=== PATIENT | female | born 1935 | race African-American/Black ===

== ENCOUNTER 2019-01-11 03:39 | Inpatient (IN) | payer MEDICARE ==
[2019-01-11] MEDS ORDERED: TYLENOL PO ONE (04:18)
[2019-01-11] MEDS ORDERED: NACL 0.9% 1000 ML 1,000 ML ONE (04:26)
[2019-01-11] MEDS ORDERED: XYLOCAINE 1% MPF 5 mL INFILTRATI ONE (05:00)
[2019-01-11] MEDS ORDERED: ROCEPHIN/NS 1 GM/50 ML 1 GM/50 ML BAG IV ONE (05:00)
[2019-01-11 05:15] LABS: Bacteria,Urine 4+ /HPF (Negative); Bilirubin,Urine NEG (Negative); Blood,Urine MOD (Negative); Color,Urine Yellow (Yellow); Hyaline Casts,Urine 3 /LPF; Mucus,Urine FEW /HPF; Urobilinogen,Urine < 2.0 mg/dL (<2.0)
[2019-01-11 05:22] LABS: Basophils % (Auto) 0.2 % (0.0-1.8); Eosinophils % (Auto) 0.2 % (0.0-4.3); Hematocrit 33.1 % (30.3-42.9); Hemoglobin 10.9 gm/dl (10.1-14.3); Lymphocytes # (Auto) 0.8 K/mm3 (1.2-5.4); Lymphocytes % (Auto) 4.5 % (13.4-35.0); Mean Corpuscular HGB Conc 33 % (30-34); Mean Corpuscular Volume 85 fl (79-97); Monocytes # (Auto) 1.2 K/mm3 (0.0-0.8); Monocytes % (Auto) 7.1 % (0.0-7.3); Platelet Count 310 K/mm3 (140-440); Red Cell Distribution Width 16.2 % (13.2-15.2)
--- NOTE | 2019-01-11 05:36 | Emergency Department Report ---
ED General Adult HPI - General Chief complaint: Fever Stated complaint: FEVER Time Seen by Provider: 01/11/19 04:52 Source: patient, family, EMS, fruit sprayer Mode of arrival: Stretcher Limitations: Language Barrier - History of Present Illness Initial comments: 83-year-old female with no past medical history presents with complaint of fever and chills since yesterday. History obtained via [employer] fruit sprayer. Patient has no abdominal pain. Patient per her has been unable to walk for one year. states the patient has had back pain for 19 years but this pain was somewhat worse today. Patient denies any numbness or tingling at the current time. Patient has no urinary incontinence. Patient and states that patient uses the assistance of her or another caregiver to help her to ambulate. Patient denies any recent trauma to her back. Patient complains of dysuria. Patient complains of an occasional cough. Patient denies any nausea vomiting. Severity scale (0 -10): 5 - Related Data Allergies Allergy/AdvReac Type Severity Reaction Status Date / Time No Known Allergies Allergy Verified 01/11/19 04:28 ED Review of Systems ROS: Stated complaint: FEVER Other details as noted in HPI Constitutional: fever Eyes: denies: eye pain, eye discharge, vision change ENT: denies: ear pain, throat pain Respiratory: denies: cough, shortness of breath, wheezing Cardiovascular: denies: chest pain, palpitations Endocrine: no symptoms reported Gastrointestinal: denies: abdominal pain, nausea, diarrhea Genitourinary: denies: urgency, dysuria, discharge Musculoskeletal: denies: back pain, joint swelling, arthralgia Skin: denies: rash, lesions Neurological: weakness Psychiatric: denies: anxiety, depression Hematological/Lymphatic: denies: easy bleeding, easy bruising ED Past Medical Hx - Past Medical History Previous Medical History?: Yes Hx Hypertension: Yes Hx CVA: No Hx Congestive Heart Failure: No Hx Diabetes: No Hx Deep Vein Thrombosis: No Hx Pulmonary Embolism: No Hx GERD: No Hx Liver Disease: Yes Hx Renal Disease: Yes Hx of Cancer: No Hx Sickle Cell Disease: No Hx Arthritis: No Hx Headaches / Migraines: No Hx Seizures: No Hx Kidney Stones: Yes (1999) Hx Psychiatric Treatment: No Hx Asthma: No Hx COPD: No Hx Tuberculosis: No Hx Dementia: No Hx HIV: No - Surgical History Past Surgical History?: No - Social History Smoking Status: Never Smoker Substance Use Type: None ED Physical Exam - General Limitations: Language Barrier General appearance: alert, other (minimal distress; dehydrated) - Head Head exam: Present: atraumatic, normocephalic - Eye Eye exam: Present: normal appearance - ENT ENT exam: Present: mucous membranes dry - Neck Neck exam: Present: normal inspection - Respiratory Respiratory exam: Present: normal lung sounds bilaterally. Absent: respiratory distress - Cardiovascular Cardiovascular Exam: Present: regular rate, normal rhythm. Absent: systolic murmur, diastolic murmur, rubs, gallop - GI/Abdominal GI/Abdominal exam: Present: soft, normal bowel sounds - Extremities Exam Extremities exam: Present: normal inspection - Back Exam Back exam: Present: normal inspection, tenderness (mild tenderness lateral to l4 region in bilateral flank region with no evidence of erythema or ecchymosis) - Neurological Exam Neurological exam: Present: alert, oriented X3, CN II-XII intact - Expanded Neurological Exam Expanded Motor strength exam: RUE: 5, LUE: 5, RLE: 5, LLE: 5 Best Eye Response ([place]): (4) open spontaneously Best Motor Response (Og): (6) obeys commands Best Verbal Response (Og): (5) oriented [place] Total: 15 - Psychiatric Psychiatric exam: Present: normal affect, normal mood - Skin Skin exam: Present: warm, dry, intact, normal color. Absent: rash ED Course Vital Signs 01/11/19 04:11 Temperature 102.2 F H Pulse Rate 95 H Respiratory 26 H Rate Blood Pressure 146/66 O2 Sat by Pulse 95 Oximetry ED Medical Decision Making - Medical Decision Making Patient noted to have fever and elevated white count and was given ceftriaxone therapy while here in emergency department as she had a source of infection with that being her urine. Patient also had a chest x-ray read by the radiologist as showing the possibility of subtle infiltrates. Patient currently is afebrile. Case was discussed with the hospitalist service and as documentation states that patient's 's states the patient is unable to walk there was a discussion of the patient will need a CT of the lumbar spine. Patient at this current time shows no evidence of any neurosurgical emergency. Patient has mobility of her upper as well as lower extremities and denies any saddle anesthesia or urinary incontinence. Patient also has no paresthesias at this current time. Upon history with he s charlotte that she has been to multiple physicians including neurologists and neurosurgeons regarding this and the only diagnoses they have his weakness per him. - Differential Diagnosis UTI; Dehydration; Electrolyte Abnormality Critical care attestation.: If time is entered above; I have spent that time in minutes in the direct care of this critically ill patient, excluding procedure time. ED Disposition Clinical Impression: Urinary tract infection, Pneumonia Disposition: 09 OP ADMIT IP TO THIS HOSP Is pt being admited?: Yes Condition: Stable Instructions: Bacterial Pneumonia (ED) Referrals: PRIMARY CARE, [Primary Care Provider] - 3-5 Days Time of Disposition: 06:07
[2019-01-11 05:38] LABS: Alanine Aminotransferase 17 units/L (7-56); Albumin 2.9 g/dL (3.9-5); BUN/Creatinine Ratio 33; Blood Urea Nitrogen 13 mg/dL (7-17); Calcium 8.2 mg/dL (8.4-10.2); Hemolysis Index 2
[2019-01-11] MEDS ORDERED: NACL 0.9% 1000 ML 1,000 ML IV ONE (05:40)
--- NOTE | 2019-01-11 05:54 | XRay Report ---
PROCEDURE: XR CHEST 1V AP TECHNIQUE: Chest radiograph single view. HISTORY: fever COMPARISONS: None . FINDINGS: Heart: Heart is borderline enlarged. Mediastinum/Vessels: There is calcified plaque in the thoracic aorta. There is no aneurysm.. Lungs/Pleural space: There are opacities in the right lung which could be infiltrates. Left lung deandre ears clear and expanded. There are no effusions or pneumothoraces.. Bony thorax: No acute osseous abnormality. Life support devices: None. IMPRESSION: Heart is borderline enlarged. There are opacities in the right lung which could be infiltrates. This document is electronically signed by Zack Chance MD., Jan 11 2019 05:52:30 AM ET
--- NOTE | 2019-01-11 07:33 | Cat Scan Report ---
CT LUMBAR SPINE WITHOUT CONTRAST History: Back pain. Technique: Helical CT with sagittal and coronal reformatted images. Findings: Moderate to severe osteopenia. No evidence for compression deformity, displaced fracture, subluxation or bone lesion. Moderate to severe degenerative disc disease with vacuum phenomenon is identified at L4-5. The remaining disc levels are unremarkable. There is minimal diffuse facet arthropathy. Partial sacralization of L5 is noted bilaterally. Mild right hydronephrosis is suspected. The distal ureters and bladder are not included in this examination. I suspect a distal right ureteral stone could be present. There are 3 stones in the visualized left kidney measuring 4 mm and 5 mm at the superior pole and 8 mm at the inferior pole. No left hydronephrosis is suspected. IMPRESSION: Osteopenia. Degenerative changes. No acute injury is identified in the lumbar spine. Nephrolithiasis. Mild right hydronephrosis is suspected but partially imaged. Correlate for distal right ureteral stone.
[2019-01-11] MEDS ORDERED: NACL 0.9% 1000 ML IV ONE (09:22)
--- NOTE | 2019-01-11 09:32 | History and Physical Report ---
History of Present Illness Date of examination: 01/11/19 Date of admission: 01/11/19 07:43 Chief complaint: Worsening back pain with associated chills History of present illness: Patient's an 83-year-old female with past medical history of hypertension, subsequently the disease, also recurrent kidney stones last time was in 1999, chronic back pain and non-ambulatory for about a year. She presents to the ED accompanied by her with complaints of worsening back pain. She relates that 10 over 10 intensity located more to the left flank area at this time. The patient reports that she has chronic pain for 19 years but this is the worst she says that since yesterday. She also complained of chills but no associated nausea vomiting and no recent trauma to her back. She denies any numbness or tingling at this time. She does complain of dysuria with occasional cough but no shortness of breath documented. Information was obtained from ED documentation, cloth printer helper, and also grandson who is at bedside. Past History Past Medical History: hypertension, other (NEPHROLITHASIS) Past Surgical History: Other Social history: no significant social history, , lives with family. denies: smoking Family history: no significant family history Medications and Allergies Allergies Allergy/AdvReac Type Severity Reaction Status Date / Time No Known Allergies Allergy Verified 01/11/19 04:28 Home Medications Medication Instructions Recorded Confirmed Last Taken Type Unobtainable 01/11/19 01/11/19 Unknown History Active Meds: Active Medications Heparin Sodium (Porcine) (Heparin) 5,000 unit SUB-Q Q8HR ROSE Potassium Chloride (Kcl 10meq/100ml) 10 meq in 100 mls @ 100 mls/hr IV Q1H ROSE Stop: 01/11/19 13:29 Magnesium Sulfate 1 gm/ Sodium (Chloride) 52 mls @ 52 mls/hr IV ONCE ONE Stop: 01/11/19 10:59 Ceftriaxone Sodium (Rocephin/Ns 2 Gm/100 Ml) 2 gm in 100 mls @ 200 mls/hr IV Q24HR ROSE; Protocol Azithromycin 500 mg/ Sodium (Chloride) 250 mls @ 250 mls/hr IV Q24HR ROSE; Protocol Sodium Chloride (Nacl 0.9% 1000 Ml) 1,260 ml 30 ml/kg (1260 ml) IV ONCE ONE Stop: 01/11/19 09:23 Tamsulosin HCl (Flomax) 0.4 mg PO QDAY ROSE Review of Systems All systems: negative Constitutional: fever, chills, anorexia, malaise, lethargy, no fatigue, no weakn ess, no chronic headaches, no poor appetite Cardiovascular: no chest pain, no orthopnea, no palpitations, no rapid/irregular heart beat, no edema, no syncope, no lightheadedness, no shortness of breath Respiratory: cough, no cough with sputum, no excessive sputum, no hemoptysis, no shortness of breath, no dyspnea on exertion Gastrointestinal: abdominal pain (LEFT FLANK) Musculoskeletal: low back pain (CHRONIC) Integumentary: no pruritis, no redness, no jaundice, no darkening of skin, no acne Neurological: paralysis (UNABLE TO AMBULATE FOR A YEAR ?ETIOLOGY-FAMILY NOT SURE), no weakness, no tingling, no syncope, no migraines, no aphasia, no change in speech, no memory loss, no sensory deficit, no double vision Psychiatric: no change in sleep habits, no insomnia, no change in appetite, no hallucinations, no anhedonia, no confusion, no sadness/tearfullness Endocrine: no polyphagia, no excessive thirst, no proptosis, no palpatations Hematologic/Lymphatic: no easy bleeding Allergic/Immunologic: no urticaria Exam - Physical Exam Narrative exam: VITAL SIGNS: Reviewed. GENERAL: The patient appeared Mild distress. cachectic, Vital signs as documented. HEAD: No signs of head trauma. EYES: Pupils are equal. Extraocular motions intact. EARS: Hearing grossly intact. MOUTH: Oropharynx is normal. NECK: No adenopathy, no JVD. Mildly tender on the right side. CHEST: Chest with clear breath sounds bilaterally. No wheezes, rales, or rhonchi. CARDIAC: Regular rate and rhythm. S1 and S2, without murmurs, gallops, or rubs. VASCULAR: No Edema. Peripheral pulses normal and equal in all extremities. ABDOMEN: Soft, non tender and non distended. No rebound or guarding, and no masses palpated. Bowel Sounds normal. MUSCULOSKELETAL: flank tender Good range of motion of all major joints. Extremities without clubbing, cyanosis or edema. NEUROLOGIC EXAM: Alert and oriented x 3 No focal sensory or strength deficits. Speech normal. Follows commands. PSYCHIATRIC: Mood normal. SKIN: No rash or lesions. normal capillary refill - Constitutional Vitals: Temp Pulse Resp BP Pulse Ox 99.7 F H 86 24 150/70 92 01/11/19 05:55 01/11/19 05:52 01/11/19 06:00 01/11/19 05:52 01/11/19 05:52 Results - Labs CBC & Chem 7: 01/11/19 04:56 01/11/19 04:56 Labs: Laboratory Last Values WBC 17.6 K/mm3 (4.5-11.0) H 01/11/19 04:56 RBC 3.90 M/mm3 (3.65-5.03) 01/11/19 04:56 Hgb 10.9 gm/dl (10.1-14.3) 01/11/19 04:56 Hct 33.1 % (30.3-42.9) 01/11/19 04:56 MCV 85 fl (79-97) 01/11/19 04:56 MCH 28 pg (28-32) 01/11/19 04:56 MCHC 33 % (30-34) 01/11/19 04:56 RDW 16.2 % (13.2-15.2) H 01/11/19 04:56 Plt Count 310 K/mm3 (140-440) 01/11/19 04:56 Lymph % (Auto) 4.5 % (13.4-35.0) L 01/11/19 04:56 Isabella % (Auto) 7.1 % (0.0-7.3) 01/11/19 04:56 Eos % (Auto) 0.2 % (0.0-4.3) 01/11/19 04:56 Baso % (Auto) 0.2 % (0.0-1.8) 01/11/19 04:56 Lymph # 0.8 K/mm3 (1.2-5.4) L 01/11/19 04:56 Isabella # 1.2 K/mm3 (0.0-0.8) H 01/11/19 04:56 Eos # 0.0 K/mm3 (0.0-0.4) 01/11/19 04:56 Baso # 0.0 K/mm3 (0.0-0.1) 01/11/19 04:56 Seg Neutrophils % 88.0 % (40.0-70.0) H 01/11/19 04:56 Seg Neutrophils # 15.5 K/mm3 (1.8-7.7) H 01/11/19 04:56 Sodium 134 mmol/L (137-145) L 01/11/19 04:56 Potassium 3.3 mmol/L (3.6-5.0) L 01/11/19 04:56 Chloride 97.6 mmol/L (98-107) L 01/11/19 04:56 Carbon Dioxide 24 mmol/L (22-30) 01/11/19 04:56 16 mmol/L 01/11/19 04:56 BUN 13 mg/dL (7-17) 01/11/19 04:56 0.4 mg/dL (0.7-1.2) L 01/11/19 04:56 Estimated GFR > 60 ml/min 01/11/19 04:56 33 % 01/11/19 04:56 Glucose 105 mg/dL (65-100) H 01/11/19 04:56 Lactic Acid 2.00 mmol/L (0.7-2.0) 01/11/19 04:56 Calcium 8.2 mg/dL (8.4-10.2) L 01/11/19 04:56 0.60 mg/dL (0.1-1.2) 01/11/19 04:56 AST 19 units/L (5-40) 01/11/19 04:56 ALT 17 units/L (7-56) 01/11/19 04:56 63 units/L (35-129) 01/11/19 04:56 25 units/L (30-135) L 01/11/19 04:56 6.8 g/dL (6.3-8.2) 01/11/19 04:56 2.9 g/dL (3.9-5) L 01/11/19 04:56 0.7 % 01/11/19 04:56 Yellow (Yellow) 01/11/19 04:00 Slightly-cloudy (Clear) 01/11/19 04:00 6.0 (5.0-7.0) 01/11/19 04:00 Ur Specific [place] 1.012 (1.003-1.030) 01/11/19 04:00 100 mg/dl mg/dL (Negative) 01/11/19 04:00 150 mg/dL (Negative) 01/11/19 04:00 Neg mg/dL (Negative) 01/11/19 04:00 Mod (Negative) 01/11/19 04:00 Pos (Negative) 01/11/19 04:00 Neg (Negative) 01/11/19 04:00 < 2.0 mg/dL (<2.0) 01/11/19 04:00 Ur Leukocyte Esterase Mod (Negative) 01/11/19 04:00 63.0 /HPF (0.0-6.0) H 01/11/19 04:00 41.0 /HPF (0.0-6.0) 01/11/19 04:00 U Epithel Cells (Auto) 3.0 /HPF (0-13.0) 01/11/19 04:00 4+ /HPF (Negative) 01/11/19 04:00 Hyaline Casts 3 /LPF 01/11/19 04:00 Few /HPF 01/11/19 04:00 Blood Type A POSITIVE 01/11/19 04:56 Antibody Screen Negative 01/11/19 04:56 - Imaging and Cardiology CT scan - abdomen: image reviewed Assessment and Plan Assessment and plan: Patient's an 83-year-old female with past medical history of hypertension, subsequently the disease, also recurrent kidney stones last time was in 1999, chronic back pain and non-ambulatory for about a year. She presents to the ED accompanied by her with complaints of worsening back pain. She relates that 10 over 10 intensity located more to the left flank area at this time. The patient reports that she has chronic pain for 19 years but this is the worst she says that since yesterday. She also complained of chills but no associated nausea vomiting and no recent trauma to her back. She denies any numbness or tingling at this time. She does complain of dysuria with occasional cough but no shortness of breath documented. Information was obtained from ED document ation, cloth printer helper, and also grandson who is at bedside. CTAP: IMPRESSION: Osteopenia. Degenerative changes. No acute injury is identified in the lumbar spine. Nephrolithiasis. Mild right hydronephrosis is suspected but partially imaged. Correlate for distal right ureteral stone. CXR: IMPRESSION: Heart is borderline enlarged. There are opacities in the right lung which could be infiltrates. Assessment Sepsis secondary to pyelonephritis Acute pyelonephritis secondary to nephrolithiasis Nephrolithiasis with mild right hydronephrosis Right lung infiltrate possible pneumonia Severe protein calorie malnutrition Hypokalemia Hyponatremia Hypocalcemia Dehydration Hypertension chronic low back pain Plan Admit patient to [facility] Initiate sepsis protocol Repeat xray in 1-2 days to further evaluate Also initiate IV fluids for supportive care suspicion appeared dehydrated Continue antibiotics with ceftriaxone and azithromycin to cover pulmonary and renal Urology consult Start patient on Flomax Strain urine Customer Experience Strategist consult Medication request that in order to obtain complete a full med reconciliation Replace Electrolytes as needed DVT and GI prophylaxis plan discussed with patient and family. Advance Directives: Yes Plan of care discussed with patient/family: Yes
[2019-01-11] MEDS ORDERED: MAGNESIUM SULFATE 1 GM in NACL 0.9% 50 ML IV ONE (10:00)
[2019-01-11] MEDS ORDERED: ZITHROMAX 500 MG in NACL 0.9% 250ML 250 ML IV SCH (10:00)
--- NOTE | 2019-01-11 11:37 | Consultation ---
History of Present Illness - Reason for Consult Consult date: 01/11/19 - History of Present Illness 83-year-old female with no past medical history presents with complaint of fever and chills since yesterday. History obtained via grandson (Mr. Hewitt) Patient has no abdominal pain. Patient per her has been unable to walk for one year. states the patient has had back pain for 19 years but this pain was somewhat worse today. Patient denies any numbness or tingling at the cu rrent time. Patient has no urinary incontinence. Patient and states that patient uses the assistance of her or another caregiver to help her to ambulate. Patient denies any recent trauma to her back. Patient complains of dysuria. Patient complains of an occasional cough. Patient denies any nausea vomiting. Severity scale (0 -10): 5 CTAP: IMPRESSION: Osteopenia. Degenerative changes. No acute injury is identified in the lumbar spine. Nephrolithiasis. Mild right hydronephrosis is suspected but partially imaged. Correlate for distal right ureteral stone. abd - soft A/P rt hydro, left renal stone needs cysto----possible bilat stents (will need eswl as an outpt--clear UTI first) Past History Past Medical History: hypertension, other (NEPHROLITHASIS) Past Surgical History: Other Social history: no significant social history, , lives with family. denies: smoking Family history: no significant family history Medications and Allergies Allergies Allergy/AdvReac Type Severity Reaction Status Date / Time No Known Allergies Allergy Verified 01/11/19 04:28 Home Medications Medication Instructions Recorded Confirmed Last Taken Type Unobtainable 01/11/19 01/11/19 Unknown History Active Meds: Active Medications Heparin Sodium (Porcine) (Heparin) 5,000 unit SUB-Q Q8HR ROSE Potassium Chloride (Kcl 10meq/100ml) 10 meq in 100 mls @ 100 mls/hr IV Q1H ROSE Stop: 01/11/19 13:29 Ceftriaxone Sodium (Rocephin/Ns 2 Gm/100 Ml) 2 gm in 100 mls @ 200 mls/hr IV Q24HR ROSE; Protocol Azithromycin 500 mg/ Sodium (Chloride) 250 mls @ 250 mls/hr IV Q24HR ROSE; Protocol Sodium Chloride (Nacl 0.9% 1000 Ml) 1,000 mls @ 125 mls/hr IV DIRECT ROSE Tamsulosin HCl (Flomax) 0.4 mg PO QDAY ROSE Exam - Constitutional Vitals: Temp Pulse Resp BP Pulse Ox 98.6 F 82 14 139/49 95 01/11/19 09:21 01/11/19 09:22 01/11/19 09:21 01/11/19 09:21 01/11/19 09:22 Results - Labs CBC & Chem 7: 01/11/19 04:56 01/11/19 04:56 Labs: Abnormal lab results 01/11/19 01/11/19 01/11/19 Range/Units 04:00 04:56 04:56 WBC 17.6 H (4.5-11.0) K/mm3 RDW 16.2 H (13.2-15.2) % Lymph % (Auto) 4.5 L (13.4-35.0) % Lymph # 0.8 L (1.2-5.4) K/mm3 [place] # 1.2 H (0.0-0.8) K/mm3 Seg Neutrophils % 88.0 H (40.0-70.0) % Seg Neutrophils # 15.5 H (1.8-7.7) K/mm3 Sodium 134 L (137-145) mmol/L Potassium 3.3 L (3.6-5.0) mmol/L Chloride 97.6 L (98-107) mmol/L Creatinine 0.4 L (0.7-1.2) mg/dL Glucose 105 H (65-100) mg/dL Calcium 8.2 L (8.4-10.2) mg/dL Total Creatine Kinase 25 L (30-135) units/L Albumin 2.9 L (3.9-5) g/dL Urine WBC (Auto) 63.0 H (0.0-6.0) /HPF
[2019-01-11] MEDS: NACL 0.9% 1000 ML 1,000 ML IV SCH (13:10)
[2019-01-11] MEDS ORDERED: DIPRIVAN 10 MG/ML IV ONE (14:32)
[2019-01-11] MEDS ORDERED: SUBLIMAZE ONE (14:33)
[2019-01-11] MEDS ORDERED: DECADRON ONE (14:55)
[2019-01-11] MEDS ORDERED: ZOFRAN ONE (14:55)
--- NOTE | 2019-01-11 14:55 | Post Operative Note ---
Date of procedure: 01/18/19 Pre-op diagnosis: rt hydronephrisis, left kidney stones Post-op diagnosis: same Procedure: cysto, rpgs, rt stent (6x 22cm) Anesthesia: GETA Estimated blood loss: none Condition: stable Disposition: PACU
[2019-01-11] MEDS ORDERED: NACL 0.45% 1000 ML 1,000 ML IV SCH (15:00)
[2019-01-11] MEDS: KCL 10MEQ/100ML 10 MEQ/100 ML BAG IV SCH ×2 (15:52→15:53)
[2019-01-11] MEDS: FLOMAX PO SCH (16:58)
[2019-01-11] MEDS: HEPARIN SUB-Q SCH ×2 (17:04→22:39)
[2019-01-11] MEDS: ROCEPHIN/NS 2 GM/100 ML 2 GM/100 ML BAG IV SCH (17:04)
--- NOTE | 2019-01-11 17:43 | Anesthesia Consultation ---
Anesthesia Consult and Med Hx - Airway Anesthetic Teeth Evaluation: Poor ROM Head & Neck: Adequate Mental/Hyoid Distance: Adequate Mallampati Class: Class II - Pulmonary Exam CTA: Yes - Cardiac Exam Cardiac Exam: RRR - Pre-Operative Health Status ASA Pre-Surgery Classification: ASA3 Proposed Anesthetic Plan: MAC - Pulmonary Hx Asthma: No COPD: No - Cardiovascular System Hx Hypertension: Yes - Central Nervous System Hx Seizures: No Hx Psychiatric Problems: No - Endocrine Hx Renal Disease: Yes Hx Liver Disease: Yes - Hematic Hx Sickle Cell Disease: No
--- NOTE | 2019-01-11 17:44 | Anesthesia Day of Surgery ---
Anesthesia Day of Surgery - Day of Surgery Patient Examined: Yes Patient H&P Reviewed: Yes Patient is NPO: Yes
--- NOTE | 2019-01-11 17:44 | Post Anesthesia Evaluation ---
- Post Anesthesia Evaluation Patient Participated: Yes Airway Patent: Yes Stable Respiratory Function: Yes Nausea/Vomiting: No Temp > 96.8F: Yes Pain Manageable: Yes Adequeate Hydration: Yes Anesthesia Complications: No Block Receding Appropriately: Not Applicable Patient on Ventilator: No
--- NOTE | 2019-01-11 19:00 | Operative Report ---
PREOPERATIVE DIAGNOSES: Right hydronephrosis, left nonobstructing renal stones, degenerative joint disease. POSTOPERATIVE DIAGNOSES: Right hydronephrosis, left nonobstructing renal stones, degenerative joint disease. PROCEDURE: Cystoscopy, bilateral retrograde pyelograms, right double-J stent placement (6-[place] 22 cm with short internal string). SURGEON: Zunilda Bourgeois MD ANESTHESIA: General. ESTIMATED BLOOD LOSS: Minimal. FLUIDS: Crystalloid. COMPLICATIONS: No complications. INDICATIONS: This patient is an 83-year-old female presented to the Emergency Room with back pain and fever. She has a long history of chronic back pain. CT of lumbar spine was obtained that confirmed degenerative changes in the spine, also was noted to have three stones in the left kidney nonobstructing (4 mm, 5 mm and 8 mm in the lower pole); however, she did have right hydronephrosis. Her grandson (Praveen Dean) was able to translate. The patient agreed to proceed with surgical intervention. DESCRIPTION OF PROCEDURE: The patient was taken to the operative suite, placed in a supine position. After adequate general anesthesia, placed in a dorsal lithotomy position, prepped and draped in a sterile fashion. Pancystourethroscopy was performed with a 22-[place] Storz cystoscope. No tumors or stone was noted. The patient was noted to have some pseudomembranous trigonitis in the bladder consistent with a possible infection. Bilateral retrograde pyelograms were obtained with an 8-[place] catheter and 8 mL of contrast. No obvious filling defects on the left. Right side had some diffuse dilatation of the ureter. She had a temp of 100 as well as a white count of 17,000. Therefore, I did not attempt ureteroscopy. I put up a 6-[place] 22 cm double-J stent with a short internal string. Bladder was drained. She was extubated and taken to recovery room. We will continue antibiotics and observation. JOB# [id number] [facility]
[2019-01-12] MEDS: NACL 0.9% 1000 ML 1,000 ML IV SCH ×2 (05:47→15:02)
[2019-01-12] MEDS: HEPARIN SUB-Q SCH ×3 (05:47→21:04)
--- NOTE | 2019-01-12 07:28 | Fluoroscopy Report ---
FLUOROSCOPY RETROGRADE UROGRAPHY: HISTORY: Hydronephrosis. FINDINGS: Fluoroscopy was provided by radiology during retrograde urography by the urologist. 8 fluoroscopic images were captured. There is adequate filling of the ureters and intrarenal collecting systems with no filling defects or anatomic abnormalities identified. A right ureteral stent was placed with good drainage of the right collecting system on the final image. Please correlate with the procedural report if needed. IMPRESSION: No filling defects identified. Right ureteral stent placement.
[2019-01-12] MEDS: FLOMAX PO SCH (10:10)
[2019-01-12] MEDS: ROCEPHIN/NS 2 GM/100 ML 2 GM/100 ML BAG IV SCH (10:10)
[2019-01-12 11:37] LABS: Basophils % (Auto) 0.1 % (0.0-1.8); Hemoglobin 10.4 gm/dl (10.1-14.3); Lymphocytes # (Auto) 1.1 K/mm3 (1.2-5.4); Lymphocytes % (Auto) 7.3 % (13.4-35.0); Mean Corpuscular HGB Conc 32 % (30-34); Mean Corpuscular Volume 87 fl (79-97); Monocytes # (Auto) 0.9 K/mm3 (0.0-0.8); Monocytes % (Auto) 5.4 % (0.0-7.3); Platelet Count 284 K/mm3 (140-440); Red Blood Count 3.66 M/mm3 (3.65-5.03); Red Cell Distribution Width 16.5 % (13.2-15.2)
[2019-01-12 11:56] LABS: BUN/Creatinine Ratio 26; Blood Urea Nitrogen 13 mg/dL (7-17); Calcium 8.2 mg/dL (8.4-10.2); Hemolysis Index 9
--- NOTE | 2019-01-12 14:21 | Progress Note ---
Assessment and Plan Assessment and plan: Patient's an 83-year-old female with past medical history of hypertension, subsequently the disease, also recurrent kidney stones last time was in 1999, chronic back pain. daughter comfirms limited ambulation with assistance. She presents to the ED accompanied by her with complaints of worsening back pain. She relates that 10 over 10 intensity located more to the left flank area at this time. The patient reports that she has chronic pain for 19 years but this is the worst she says that since yesterday. She also complained of chills but no associated nausea vomiting and no recent trauma to her back. She denies any numbness or tingling at this time. She does complain of dysuria with o ccasional cough but no shortness of breath documented. Information was obtained from ED documentation, vp delivery, and also grandson who is at bedside. CTAP: IMPRESSION: Osteopenia. Degenerative changes. No acute injury is identified in the lumbar spine. Nephrolithiasis. Mild right hydronephrosis is suspected but partially imaged. Correlate for distal right ureteral stone. CXR: IMPRESSION: Heart is borderline enlarged. There are opacities in the right lung which could be infiltrates. S/P cysto, rpgs, rt stent (6x 22cm) by urology 01/11/19 Assessment Sepsis secondary to pyelonephritis Acute pyelonephritis secondary to nephrolithiasis Nephrolithiasis with mild right hydronephrosis Right lung infiltrate possible pneumonia Severe protein calorie malnutrition Hypokalemia Hyponatremia Hypocalcemia Dehydration Hypertension chronic low back pain Plan Continue abx, and supportive care Continue sepsis protocol, urine culture and blood cluture with no growth so far Repeat xray in am. PT/OT eval and treat. new information shows that patient is able to ambulate with assistance Continue antibiotics with ceftriaxone and azithromycin to cover pulmonary and renal Urology input noted continue patient on Flomax Strain urine Principal Strategist consult Medication request that in order to obtain complete a full med reconciliation Replace Electrolytes as needed DVT and GI prophylaxis anticipate discharge in am, plan discussed with patient and family. History Interval history: Patient seen and examined, family and patient reports improvement in the pain in back. No nausea, vomiting, she was able to ambulate to the bathroom with assistance. Hospitalist Physical - Physical exam Narrative exam: VITAL SIGNS: Reviewed. GENERAL: The patient appeared No distress. cachectic, Vital signs as documented. HEAD: No signs of head trauma. EYES: Pupils are equal. Extraocular motions intact. EARS: Hearing grossly intact. MOUTH: Oropharynx is normal. NECK: No adenopathy, no JVD. Mildly tender on the right side. CHEST: Chest with clear breath sounds bilaterally. No wheezes, rales, or rhonchi. CARDIAC: Regular rate and rhythm. S1 and S2, without murmurs, gallops, or rubs. VASCULAR: No Edema. Peripheral pulses normal and equal in all extremities. ABDOMEN: Soft, non tender and non distended. No rebound or guarding, and no masses palpated. Bowel Sounds normal. MUSCULOSKELETAL: flank tender Good range of motion of all major joints. Extremities without clubbing, cyanosis or edema. NEUROLOGIC EXAM: Alert and oriented x 3 No focal sensory or strength deficits. Speech normal. Follows commands. PSYCHIATRIC: Mood normal. SKIN: No rash or lesions. normal capillary refill - Constitutional Vitals: Temp Pulse Resp BP Pulse Ox 97.2 F L 69 20 150/74 93 01/12/19 07:25 01/12/19 10:00 01/12/19 10:00 01/12/19 07:25 01/12/19 10:00 Results - Labs CBC & Chem 7: 01/12/19 11:05 01/12/19 11:05 Labs: Laboratory Last Values WBC 15.7 K/mm3 (4.5-11.0) H 01/12/19 11:05 RBC 3.66 M/mm3 (3.65-5.03) 01/12/19 11:05 Hgb 10.4 gm/dl (10.1-14.3) 01/12/19 11:05 Hct 32.0 % (30.3-42.9) 01/12/19 11:05 MCV 87 fl (79-97) 01/12/19 11:05 MCH 28 pg (28-32) 01/12/19 11:05 MCHC 32 % (30-34) 01/12/19 11:05 RDW 16.5 % (13.2-15.2) H 01/12/19 11:05 Plt Count 284 K/mm3 (140-440) 01/12/19 11:05 Lymph % (Auto) 7.3 % (13.4-35.0) L 01/12/19 11:05 [place] % (Auto) 5.4 % (0.0-7.3) 01/12/19 11:05 Eos % (Auto) 0.0 % (0.0-4.3) 01/12/19 11:05 Baso % (Auto) 0.1 % (0.0-1.8) 01/12/19 11:05 Lymph # 1.1 K/mm3 (1.2-5.4) L 01/12/19 11:05 [place] # 0.9 K/mm3 (0.0-0.8) H 01/12/19 11:05 Eos # 0.0 K/mm3 (0.0-0.4) 01/12/19 11:05 Baso # 0.0 K/mm3 (0.0-0.1) 01/12/19 11:05 Seg Neutrophils % 87.2 % (40.0-70.0) H 01/12/19 11:05 Seg Neutrophils # 13.7 K/mm3 (1.8-7.7) H 01/12/19 11:05 Sodium 138 mmol/L (137-145) 01/12/19 11:05 Potassium 4.5 mmol/L (3.6-5.0) D 01/12/19 11:05 Chloride 101.6 mmol/L (98-107) 01/12/19 11:05 Carbon Dioxide 22 mmol/L (22-30) 01/12/19 11:05 19 mmol/L 01/12/19 11:05 BUN 13 mg/dL (7-17) 01/12/19 11:05 0.5 mg/dL (0.7-1.2) L 01/12/19 11:05 Estimated GFR > 60 ml/min 01/12/19 11:05 26 % 01/12/19 11:05 Glucose 161 mg/dL (65-100) H 01/12/19 11:05 Lactic Acid 2.00 mmol/L (0.7-2.0) 01/11/19 04:56 Calcium 8.2 mg/dL (8.4-10.2) L 01/12/19 11:05 0.60 mg/dL (0.1-1.2) 01/11/19 04:56 AST 19 units/L (5-40) 01/11/19 04:56 ALT 17 units/L (7-56) 01/11/19 04:56 63 units/L (35-129) 01/11/19 04:56 25 units/L (30-135) L 01/11/19 04:56 6.8 g/dL (6.3-8.2) 01/11/19 04:56 2.9 g/dL (3.9-5) L 01/11/19 04:56 0.7 % 01/11/19 04:56 Yellow (Yellow) 01/11/19 04:00 Slightly-cloudy (Clear) 01/11/19 04:00 6.0 (5.0-7.0) 01/11/19 04:00 Ur Specific [place] 1.012 (1.003-1.030) 01/11/19 04:00 100 mg/dl mg/dL (Negative) 01/11/19 04:00 150 mg/dL (Negative) 01/11/19 04:00 Neg mg/dL (Negative) 01/11/19 04:00 Mod (Negative) 01/11/19 04:00 Pos (Negative) 01/11/19 04:00 Neg (Negative) 01/11/19 04:00 < 2.0 mg/dL (<2.0) 01/11/19 04:00 Ur Leukocyte Esterase Mod (Negative) 01/11/19 04:00 63.0 /HPF (0.0-6.0) H 01/11/19 04:00 41.0 /HPF (0.0-6.0) 01/11/19 04:00 U Epithel Cells (Auto) 3.0 /HPF (0-13.0) 01/11/19 04:00 4+ /HPF (Negative) 01/11/19 04:00 Hyaline Casts 3 /LPF 01/11/19 04:00 Few /HPF 01/11/19 04:00 Blood Type A POSITIVE 01/11/19 04:56 Antibody Screen Negative 01/11/19 04:56 Active Medications - Current Medications Current Medications: Generic Name Dose Route Start Last Admin Trade Name Freq PRN Reason Stop Dose Admin Heparin Sodium (Porcine) 5,000 unit 01/11/19 14:00 01/12/19 05:47 Heparin SUB-Q 5,000 unit Q8HR ROSE Administration Ceftriaxone Sodium 2 gm in 100 mls @ 200 mls/hr 01/11/19 10:00 01/12/19 10:10 Rocephin/Ns 2 Gm/100 Ml IV 200 mls/hr Q24HR ROSE Administration Protocol Sodium Chloride 1,000 mls @ 125 mls/hr 01/11/19 10:00 01/12/19 05:47 Nacl 0.9% 1000 Ml IV 125 mls/hr DIRECT ROSE Administration Sodium Chloride 1,000 mls @ 75 mls/hr 01/11/19 15:00 Nacl 0.45% 1000 Ml IV DIRECT ROSE Tamsulosin HCl 0.4 mg 01/11/19 10:00 01/12/19 10:10 Flomax PO 0.4 mg QDAY ROSE Administration Nutrition/Malnutrition Assess - Dietary Evaluation Nutrition/Malnutrition Findings: Nutrition Notes Start: 01/11/19 16:09 Freq: Status: Active Protocol: Document 01/11/19 16:09 RM (Rec: 01/11/19 16:11 RM [id number]) Nutrition Notes Need for Assessment generated from: MD Order Initial or Follow up Brief Note Current Diagnosis Sepsis,Hypertension Other Pertinent Diagnosis Possible pneu Current Diet NPO Labs/Tests Reviewed Pertinent Medications Reviewed Height 5 ft 2 in Weight 55 kg [place] Body Weight (kg) 50.00 BMI 22.1 Subjective/Other Information Consulted for malnutrition. Pt not in room at time of visit. No family present to facilitate assessment. Burn Absent Trauma Absent Nutrition Intervention Follow-Up By: 01/12/19 Additional Comments Follow for malnutrition assessment
--- NOTE | 2019-01-12 17:39 | Event Note ---
Date: 01/12/19 pt needs f/u in office for re eval & possible stent removal
[2019-01-12] MEDS: APRESOLINE IV SCH (21:02)
[2019-01-13] MEDS: NACL 0.9% 1000 ML 1,000 ML IV SCH ×4 (00:18→19:21)
[2019-01-13] MEDS: APRESOLINE IV SCH ×3 (02:47→09:34)
[2019-01-13 05:01] LABS: Hematocrit 32.7 % (30.3-42.9); Hemoglobin 10.7 gm/dl (10.1-14.3); Mean Corpuscular HGB Conc 33 % (30-34); Mean Corpuscular Volume 85 fl (79-97); Platelet Count 326 K/mm3 (140-440); Red Blood Count 3.83 M/mm3 (3.65-5.03); Red Cell Distribution Width 16.3 % (13.2-15.2)
[2019-01-13] MEDS: HEPARIN SUB-Q SCH ×3 (05:48→21:59)
--- NOTE | 2019-01-13 07:46 | Progress Note ---
Assessment and Plan Assessment and plan: Patient's an 83-year-old female with past medical history of hypertension, subsequently the disease, also recurrent kidney stones last time was in 1999, chronic back pain. daughter comfirms limited ambulation with assistance. She presents to the ED accompanied by her with complaints of worsening back pain. She relates that 10 over 10 intensity located more to the left flank area at this time. The patient reports that she has chronic pain for 19 years but this is the worst she says that since yesterday. She also complained of chills but no associated nausea vomiting and no recent trauma to her back. She denies any numbness or tingling at this time. She does complain of dysuria with o ccasional cough but no shortness of breath documented. Information was obtained from ED documentation, social work coordinator, and also grandson who is at bedside. CTAP: IMPRESSION: Osteopenia. Degenerative changes. No acute injury is identified in the lumbar spine. Nephrolithiasis. Mild right hydronephrosis is suspected but partially imaged. Correlate for distal right ureteral stone. CXR: IMPRESSION: Heart is borderline enlarged. There are opacities in the right lung which could be infiltrates. S/P cysto, rpgs, rt stent (6x 22cm) by urology 01/11/19 Assessment Sepsis secondary to pyelonephritis Acute pyelonephritis secondary to nephrolithiasis Nephrolithiasis with mild right hydronephrosis Right lung infiltrate possible pneumonia Severe protein calorie malnutrition Hypokalemia Hyponatremia Hypocalcemia Dehydration Hypertension chronic low back pain Plan Continue abx, and supportive care Continue to await culture. Change abx to fluroquinolone considering continued low grad fever and culture showing gram negative mikayla Continue sepsis protocol, urine culture Repeat xray in am. PT/OT eval and treat. new information shows that patient is able to ambulate with assistance Continue antibiotics with ceftriaxone and azithromycin to cover pulmonary and renal Urology input noted continue patient on Flomax Strain urine Burn Nurse consult Medication request that in order to obtain complete a full med reconciliation Replace Electrolytes as needed DVT and GI prophylaxis anticipate discharge in am, plan discussed with patient and family. History Interval history: Patient seen and examined, she reports that she had increase pain but resolved. Also nursing staff reported that the patient had elevated BP and was tachycardic overnight. Discussed home medications. Hospitalist Physical - Physical exam Narrative exam: VITAL SIGNS: Reviewed. GENERAL: The patient appeared No distress. cachectic, Vital signs as documented. HEAD: No signs of head trauma. EYES: Pupils are equal. Extraocular motions intact. EARS: Hearing grossly intact. MOUTH: Oropharynx is normal. NECK: No adenopathy, no JVD. Mildly tender on the right side. CHEST: Chest with clear breath sounds bilaterally. No wheezes, rales, or rhonchi. CARDIAC: Regular rate and rhythm. S1 and S2, without murmurs, gallops, or rubs. VASCULAR: No Edema. Peripheral pulses normal and equal in all extremities. ABDOMEN: Soft, non tender and non distended. No rebound or guarding, and no masses palpated. Bowel Sounds normal. MUSCULOSKELETAL: flank tender Good range of motion of all major joints. Extremities without clubbing, cyanosis or edema. NEUROLOGIC EXAM: Alert and oriented x 3 No focal sensory or strength deficits. Speech normal. Follows commands. PSYCHIATRIC: Mood normal. SKIN: No rash or lesions. normal capillary refill - Constitutional Vitals: Temp Pulse Resp BP Pulse Ox 100.1 F H 105 H 24 156/83 92 01/13/19 02:33 01/13/19 05:44 01/13/19 02:33 01/13/19 05:44 01/13/19 02:33 Results - Labs CBC & Chem 7: 01/14/19 04:14 01/14/19 04:14 Labs: Laboratory Last Values WBC 16.7 K/mm3 (4.5-11.0) H 01/13/19 04:23 RBC 3.83 M/mm3 (3.65-5.03) 01/13/19 04:23 Hgb 10.7 gm/dl (10.1-14.3) 01/13/19 04:23 Hct 32.7 % (30.3-42.9) 01/13/19 04:23 MCV 85 fl (79-97) 01/13/19 04:23 MCH 28 pg (28-32) 01/13/19 04:23 MCHC 33 % (30-34) 01/13/19 04:23 RDW 16.3 % (13.2-15.2) H 01/13/19 04:23 Plt Count 326 K/mm3 (140-440) 01/13/19 04:23 Lymph % (Auto) 7.3 % (13.4-35.0) L 01/12/19 11:05 [place] % (Auto) 5.4 % (0.0-7.3) 01/12/19 11:05 Eos % (Auto) 0.0 % (0.0-4.3) 01/12/19 11:05 Baso % (Auto) 0.1 % (0.0-1.8) 01/12/19 11:05 Lymph # 1.1 K/mm3 (1.2-5.4) L 01/12/19 11:05 [place] # 0.9 K/mm3 (0.0-0.8) H 01/12/19 11:05 Eos # 0.0 K/mm3 (0.0-0.4) 01/12/19 11:05 Baso # 0.0 K/mm3 (0.0-0.1) 01/12/19 11:05 Seg Neutrophils % 87.2 % (40.0-70.0) H 01/12/19 11:05 Seg Neutrophils # 13.7 K/mm3 (1.8-7.7) H 01/12/19 11:05 Sodium 138 mmol/L (137-145) 01/12/19 11:05 Potassium 4.5 mmol/L (3.6-5.0) D 01/12/19 11:05 Chloride 101.6 mmol/L (98-107) 01/12/19 11:05 Carbon Dioxide 22 mmol/L (22-30) 01/12/19 11:05 19 mmol/L 01/12/19 11:05 BUN 13 mg/dL (7-17) 01/12/19 11:05 0.5 mg/dL (0.7-1.2) L 01/12/19 11:05 Estimated GFR > 60 ml/min 01/12/19 11:05 26 % 01/12/19 11:05 Glucose 161 mg/dL (65-100) H 01/12/19 11:05 POC Glucose 103 (70-105) 01/12/19 22:35 Lactic Acid 2.00 mmol/L (0.7-2.0) 01/11/19 04:56 Calcium 8.2 mg/dL (8.4-10.2) L 01/12/19 11:05 0.60 mg/dL (0.1-1.2) 01/11/19 04:56 AST 19 units/L (5-40) 01/11/19 04:56 ALT 17 units/L (7-56) 01/11/19 04:56 63 units/L (35-129) 01/11/19 04:56 25 units/L (30-135) L 01/11/19 04:56 6.8 g/dL (6.3-8.2) 01/11/19 04:56 2.9 g/dL (3.9-5) L 01/11/19 04:56 0.7 % 01/11/19 04:56 Yellow (Yellow) 01/11/19 04:00 Slightly-cloudy (Clear) 01/11/19 04:00 6.0 (5.0-7.0) 01/11/19 04:00 Ur Specific [place] 1.012 (1.003-1.030) 01/11/19 04:00 100 mg/dl mg/dL (Negative) 01/11/19 04:00 150 mg/dL (Negative) 01/11/19 04:00 Neg mg/dL (Negative) 01/11/19 04:00 Mod (Negative) 01/11/19 04:00 Pos (Negative) 01/11/19 04:00 Neg (Negative) 01/11/19 04:00 < 2.0 mg/dL (<2.0) 01/11/19 04:00 Ur Leukocyte Esterase Mod (Negative) 01/11/19 04:00 63.0 /HPF (0.0-6.0) H 01/11/19 04:00 41.0 /HPF (0.0-6.0) 01/11/19 04:00 U Epithel Cells (Auto) 3.0 /HPF (0-13.0) 01/11/19 04:00 4+ /HPF (Negative) 01/11/19 04:00 Hyaline Casts 3 /LPF 01/11/19 04:00 Few /HPF 01/11/19 04:00 Blood Type A POSITIVE 01/11/19 04:56 Antibody Screen Negative 01/11/19 04:56 Active Medications - Current Medications Current Medications: Generic Name Dose Route Start Last Admin Trade Name Freq PRN Reason Stop Dose Admin Heparin Sodium (Porcine) 5,000 unit 01/11/19 14:00 01/13/19 05:48 Heparin SUB-Q 5,000 unit Q8HR ROSE Administration Hydralazine HCl 10 mg 01/12/19 22:00 01/13/19 05:44 Apresoline IV 10 mg Q4HR ROSE Administration Sodium Chloride 1,000 mls @ 125 mls/hr 01/11/19 10:00 01/13/19 00:28 Nacl 0.9% 1000 Ml IV 125 mls/hr DIRECT ROSE Administration Sodium Chloride 1,000 mls @ 75 mls/hr 01/11/19 15:00 Nacl 0.45% 1000 Ml IV DIRECT ROSE Sodium Chloride 1,000 mls @ 999 mls/hr 01/13/19 08:00 Nacl 0.9% 1000 Ml IV 01/13/19 09:00 BOLUS ONE Levofloxacin/Dextrose 750 mg in 150 mls @ 100 mls/hr 01/13/19 10:00 Levaquin 750mg/150ml IV Q24HR ROSE Protocol Tamsulosin HCl 0.4 mg 01/11/19 10:00 01/12/19 10:10 Flomax PO 0.4 mg QDAY ROSE Administration Nutrition/Malnutrition Assess - Dietary Evaluation Nutrition/Malnutrition Findings: Nutrition Notes Start: 01/11/19 16:09 Freq: Status: Active Protocol: Document 01/12/19 15:46 RM (Rec: 01/12/19 15:51 RM [id number]) Nutrition Notes Initial or Follow up Assessment Current Diagnosis Sepsis,Hypertension Other Pertinent Diagnosis Pyelonephritis, Nephrolithiasis Current Diet Regular Labs/Tests Reviewed Pertinent Medications Reviewed Height 5 ft 2 in Weight 55 kg Usual Body Weight 57.27 kg [place] Body Weight (kg) 50.00 BMI 22.1 Weight change and time frame 4% wt loss X 4 months. Subjective/Other Information Pt and pt daughter in room. Pt does not speak [place] island[place] so daughter acted as social work coordinator or spoke on behalf of pt. Pt daughter stated that [employer] pt appetite was poor and that she ate 3 small meals daily. Stated pt appetite is poor now and that she does not like the facility meals because she is used to [place] food. Noted lunched at bedside w/ only fruit and green peas from chicken pot pie eaten. Stated UBW was 126 lbs 4 months ago. No temporal or orbital wasting . Burn Absent Trauma Absent #1 Nutrition Diagnosis Inadequate oral intake Etiology food preferences As Evidenced by Signs and Symptoms lunch at bedside w/only fruit and green peas eaten Is patient on ventilator? No Is Patient Ambulatory and/or Out of Bed No REE-([facility]-confined to bed) 1151.304 Kcal/Kg value to use for calculation 25 Approximate Energy Requirements Using 1375 kcal/Kg Calculation Used for Recommendations [facility] Additional Notes Protein Needs: 83-94g (1-1.2g/ kg) Fluid Needs: 1 ml/kcal Nutrition Intervention Change Diet Order: Continue current Add Supplement/Snack (indicate name/kcal Ensure Enlive Chocolate 1 /protein ) daily Provides kCal: 350 Provides Protein (gm) 20 Goal #1 Meet at least 75% of calorie and protein needs via PO and ONS intakes Follow-Up By: 01/16/19 Additional Comments Follow for PO and ONS intakes
[2019-01-13] MEDS ORDERED: NACL 0.9% 1000 ML 1,000 ML IV ONE (08:00)
[2019-01-13] MEDS: FLOMAX PO SCH (09:32)
[2019-01-13] MEDS ORDERED: LEVAQUIN 750MG/150ML 750 MG/150 ML BAG IV SCH (10:00)
[2019-01-13] MEDS: ZESTRIL PO SCH (10:40)
--- NOTE | 2019-01-13 11:14 | XRay Report ---
PROCEDURE: XR CHEST 1V AP TECHNIQUE: Frontal chest radiograph. HISTORY: shortness of breath COMPARISONS: 01/11/2019. FINDINGS: Unchanged aortic calculi. Unchanged mild cardiomegaly. Unchanged diffuse increased interstitial markings. Worsened patchy right upper and middle lobe opacit ies are seen. Unchanged subsegmental left lower lobe atelectasis. No pleural effusion. No pneumothorax. No acute osseous abnormality. IMPRESSION: Worsened right upper and middle lobe opacities concerning for pneumonia. This document is electronically signed by Kavitha Crane., Jan 13 2019 11:12:39 AM ET
[2019-01-13] MEDS: APRESOLINE IV PRN (14:32)
[2019-01-14] MEDS: APRESOLINE IV PRN ×2 (02:13→07:59)
[2019-01-14] MEDS: NACL 0.9% 1000 ML 1,000 ML IV SCH ×2 (04:18→21:14)
[2019-01-14 04:57] LABS: Hematocrit 30.4 % (30.3-42.9); Hemoglobin 10.1 gm/dl (10.1-14.3); Mean Corpuscular HGB Conc 33 % (30-34); Mean Corpuscular Volume 85 fl (79-97); Platelet Count 313 K/mm3 (140-440); Red Blood Count 3.57 M/mm3 (3.65-5.03); Red Cell Distribution Width 16.6 % (13.2-15.2)
[2019-01-14 05:20] LABS: BUN/Creatinine Ratio 17; Blood Urea Nitrogen 5 mg/dL (7-17); Hemolysis Index 3
[2019-01-14] MEDS: HEPARIN SUB-Q SCH ×3 (05:20→21:14)
[2019-01-14] MEDS ORDERED: K-DUR PO ONE (06:47)
[2019-01-14] MEDS ORDERED: MAGNESIUM SULFATE 1 GM in NACL 0.9% 50 ML IV ONE (07:31)
--- NOTE | 2019-01-14 07:44 | Progress Note ---
Assessment and Plan Assessment and plan: Patient's an 83-year-old female with past medical history of hypertension, subsequently the disease, also recurrent kidney stones last time was in 1999, chronic back pain. daughter comfirms limited ambulation with assistance. She presents to the ED accompanied by her with complaints of worsening back pain. She relates that 10 over 10 intensity located more to the left flank area at this time. The patient reports that she has chronic pain for 19 years but this is the worst she says that since yesterday. She also complained of chills but no associated nausea vomiting and no recent trauma to her back. She denies any numbness or tingling at this time. She does complain of dysuria with o ccasional cough but no shortness of breath documented. Information was obtained from ED documentation, software client architect, and also grandson who is at bedside. CTAP: IMPRESSION: Osteopenia. Degenerative changes. No acute injury is identified in the lumbar spine. Nephrolithiasis. Mild right hydronephrosis is suspected but partially imaged. Correlate for distal right ureteral stone. CXR: IMPRESSION: Shows worsening infiltrates S/P cysto, rpgs, rt stent (6x 22cm) by urology 01/11/19 Assessment Sepsis secondary to pyelonephritis Acute Respiratory failure ?Worsening PNA, and or volume overload Acute pyelonephritis secondary to nephrolithiasis Nephrolithiasis with mild right hydronephrosis Community acquired Pneumonia-worse per imaging, but not clinically Severe protein calorie malnutrition Hypokalemia Hyponatremia Hypocalcemia Dehydration Hypertension-UNCONTROLLED chronic low back pain Plan Continue abx, and supportive care Continue to await culture. NEBS. if no improvement may transfer to stepdown unit. Give a state dose of lasix START HOME MEDS OBTAINED, INCLUDING ATENOLOL REPLACE K Continue levaquin. add Azithromycin. GET BASELINE EKG to monitor for QT prolongation Continue sepsis protocol, urine culture Aspiration precaution Repeat xray in am. PT/OT eval and treat. new information shows that patient is able to ambulate with assistance Urology input noted continue patient on Flomax Strain urine Strap Buckler Machine consult Medication request that in order to obtain complete a full med reconciliation Replace Electrolytes as needed DVT and GI prophylaxis plan discussed with patient and family. History Interval history: Patient seen and examined, this morning, noted increased wheezing and shortness of breath, hypothermic Hospitalist Physical - Physical exam Narrative exam: VITAL SIGNS: Reviewed. GENERAL: The patient appeared No distress. cachectic, Vital signs as documented. HEAD: No signs of head trauma. EYES: Pupils are equal. Extraocular motions intact. EARS: Hearing grossly intact. MOUTH: Oropharynx is normal. NECK: No adenopathy, no JVD. Mildly tender on the right side. CHEST: Chest with wheezing breath sounds bilaterally. increased WOB No rales, or rhonchi. CARDIAC: Regular rate and rhythm. S1 and S2, without murmurs, gallops, or rubs. VASCULAR: No Edema. Peripheral pulses normal and equal in all extremities. ABDOMEN: Soft, non tender and non distended. No rebound or guarding, and no masses palpated. Bowel Sounds normal. MUSCULOSKELETAL: flank tender Good range of motion of all major joints. Extremities without clubbing, cyanosis or edema. NEUROLOGIC EXAM: Alert and oriented x 3 No focal sensory or strength deficits. Speech normal. Follows commands. PSYCHIATRIC: Mood normal. SKIN: No rash or lesions. normal capillary refill - Constitutional Vitals: Temp Pulse Resp BP Pulse Ox 98.8 F 109 H 28 H 174/93 93 01/14/19 01:56 01/14/19 02:13 01/14/19 01:56 01/14/19 02:13 01/14/19 01:56 Results - Labs CBC & Chem 7: 01/14/19 04:14 01/14/19 04:14 Labs: Laboratory Last Values WBC 14.3 K/mm3 (4.5-11.0) H 01/14/19 04:14 RBC 3.57 M/mm3 (3.65-5.03) L 01/14/19 04:14 Hgb 10.1 gm/dl (10.1-14.3) 01/14/19 04:14 Hct 30.4 % (30.3-42.9) 01/14/19 04:14 MCV 85 fl (79-97) 01/14/19 04:14 MCH 28 pg (28-32) 01/14/19 04:14 MCHC 33 % (30-34) 01/14/19 04:14 RDW 16.6 % (13.2-15.2) H 01/14/19 04:14 Plt Count 313 K/mm3 (140-440) 01/14/19 04:14 Lymph % (Auto) 7.3 % (13.4-35.0) L 01/12/19 11:05 Roberts % (Auto) 5.4 % (0.0-7.3) 01/12/19 11:05 Eos % (Auto) 0.0 % (0.0-4.3) 01/12/19 11:05 Baso % (Auto) 0.1 % (0.0-1.8) 01/12/19 11:05 Lymph # 1.1 K/mm3 (1.2-5.4) L 01/12/19 11:05 Roberts # 0.9 K/mm3 (0.0-0.8) H 01/12/19 11:05 Eos # 0.0 K/mm3 (0.0-0.4) 01/12/19 11:05 Baso # 0.0 K/mm3 (0.0-0.1) 01/12/19 11:05 Seg Neutrophils % 87.2 % (40.0-70.0) H 01/12/19 11:05 Seg Neutrophils # 13.7 K/mm3 (1.8-7.7) H 01/12/19 11:05 Sodium 133 mmol/L (137-145) L 01/14/19 04:14 Potassium 2.7 mmol/L (3.6-5.0) L* D 01/14/19 04:14 Chloride 94.6 mmol/L (98-107) L 01/14/19 04:14 Carbon Dioxide 22 mmol/L (22-30) 01/14/19 04:14 19 mmol/L 01/14/19 04:14 BUN 5 mg/dL (7-17) L 01/14/19 04:14 0.3 mg/dL (0.7-1.2) L 01/14/19 04:14 Estimated GFR > 60 ml/min 01/14/19 04:14 17 % 01/14/19 04:14 Glucose 138 mg/dL (65-100) H 01/14/19 04:14 POC Glucose 103 (70-105) 01/12/19 22:35 Lactic Acid 2.00 mmol/L (0.7-2.0) 01/11/19 04:56 Calcium 8.0 mg/dL (8.4-10.2) L 01/14/19 04:14 0.60 mg/dL (0.1-1.2) 01/11/19 04:56 AST 19 units/L (5-40) 01/11/19 04:56 ALT 17 units/L (7-56) 01/11/19 04:56 63 units/L (35-129) 01/11/19 04:56 25 units/L (30-135) L 01/11/19 04:56 6.8 g/dL (6.3-8.2) 01/11/19 04:56 2.9 g/dL (3.9-5) L 01/11/19 04:56 0.7 % 01/11/19 04:56 Yellow (Yellow) 01/11/19 04:00 Slightly-cloudy (Clear) 01/11/19 04:00 6.0 (5.0-7.0) 01/11/19 04:00 Ur Specific Christine 1.012 (1.003-1.030) 01/11/19 04:00 100 mg/dl mg/dL (Negative) 01/11/19 04:00 150 mg/dL (Negative) 01/11/19 04:00 Neg mg/dL (Negative) 01/11/19 04:00 Mod (Negative) 01/11/19 04:00 Pos (Negative) 01/11/19 04:00 Neg (Negative) 01/11/19 04:00 < 2.0 mg/dL (<2.0) 01/11/19 04:00 Ur Leukocyte Esterase Mod (Negative) 01/11/19 04:00 63.0 /HPF (0.0-6.0) H 01/11/19 04:00 41.0 /HPF (0.0-6.0) 01/11/19 04:00 U Epithel Cells (Auto) 3.0 /HPF (0-13.0) 01/11/19 04:00 4+ /HPF (Negative) 01/11/19 04:00 Hyaline Casts 3 /LPF 01/11/19 04:00 Few /HPF 01/11/19 04:00 Blood Type A POSITIVE 01/11/19 04:56 Antibody Screen Negative 01/11/19 04:56 Active Medications - Current Medications Current Medications: Generic Name Dose Route Start Last Admin Trade Name Freq PRN Reason Stop Dose Admin Clopidogrel Bisulfate 75 mg 01/14/19 10:00 Plavix PO QDAY ROSE Heparin Sodium (Porcine) 5,000 unit 01/11/19 14:00 01/14/19 05:20 Heparin SUB-Q 5,000 unit Q8HR ROSE Administration Hydralazine HCl 10 mg 01/13/19 09:46 01/14/19 02:13 Apresoline IV 10 mg Q4HR PRN Administration Hypertension Sodium Chloride 1,000 mls @ 75 mls/hr 01/11/19 10:00 01/14/19 04:18 Nacl 0.9% 1000 Ml IV 125 mls/hr DIRECT ROSE Administration Sodium Chloride 1,000 mls @ 75 mls/hr 01/11/19 15:00 Nacl 0.45% 1000 Ml IV DIRECT ROSE Potassium Chloride 10 meq in 100 mls @ 100 mls/hr 01/14/19 08:00 Kcl 10meq/100ml IV 01/14/19 11:59 Q1H ROSE Magnesium Sulfate 1 gm/ Sodium 52 mls @ 52 mls/hr 01/14/19 07:31 Chloride IV 01/14/19 08:30 ONCE ONE Azithromycin 500 mg/ Sodium 250 mls @ 250 mls/hr 01/14/19 10:00 Chloride IV Q24HR ROSE Ceftriaxone Sodium 2 gm in 100 mls @ 200 mls/hr 01/14/19 10:00 Rocephin/Ns 2 Gm/100 Ml IV Q24HR [facility] Protocol Lisinopril 40 mg 01/13/19 10:00 01/13/19 10:40 Zestril PO 40 mg QDAY ROSE Administration Loratadine 10 mg 01/14/19 10:00 Claritin PO DAILY [facility] Miscellaneous Medication 160 mg 01/14/19 10:00 Fenofibrate PO DAILY [facility] Tamsulosin HCl 0.4 mg 01/11/19 10:00 01/13/19 09:32 Flomax PO 0.4 mg QDAY ROSE Administration Nutrition/Malnutrition Assess - Dietary Evaluation Nutrition/Malnutrition Findings: Nutrition Notes Start: 01/11/19 16:09 Freq: Status: Active Protocol: Document 01/12/19 15:46 RM (Rec: 01/12/19 15:51 RM [id number]) Nutrition Notes Initial or Follow up Assessment Current Diagnosis Sepsis,Hypertension Other Pertinent Diagnosis Pyelonephritis, Nephrolithiasis Current Diet Regular Labs/Tests Reviewed Pertinent Medications Reviewed Height 5 ft 2 in Weight 55 kg Usual Body Weight 57.27 kg [place] Body Weight (kg) 50.00 BMI 22.1 Weight change and time frame 4% wt loss X 4 months. Subjective/Other Information Pt and pt daughter in room. Pt does not speak chinese so daughter acted as software client architect or spoke on behalf of pt. Pt daughter stated that MOBILITY DEVELOPER pt appetite was poor and that she ate 3 small meals daily. Stated pt appetite is poor now and that she does not like the facility meals because she is used to Portuguese food. Noted lunched at bedside w/ only fruit and green peas from chicken pot pie eaten. Stated UBW was 126 lbs 4 months ago. No temporal or orbital wasting . Burn Absent Trauma Absent #1 Nutrition Diagnosis Inadequate oral intake Etiology food preferences As Evidenced by Signs and Symptoms lunch at bedside w/only fruit and green peas eaten Is patient on ventilator? No Is Patient Ambulatory and/or Out of Bed No REE-([facility]-confined to bed) 1151.304 Kcal/Kg value to use for calculation 25 Approximate Energy Requirements Using 1375 kcal/Kg Calculation Used for Recommendations [facility] Additional Notes Protein Needs: 83-94g (1-1.2g/ kg) Fluid Needs: 1 ml/kcal Nutrition Intervention Change Diet Order: Continue current Add Supplement/Snack (indicate name/kcal Ensure Enlive Chocolate 1 /protein ) daily Provides kCal: 350 Provides Protein (gm) 20 Goal #1 Meet at least 75% of calorie and protein needs via PO and ONS intakes Follow-Up By: 01/16/19 Additional Comments Follow for PO and ONS intakes
[2019-01-14] MEDS ORDERED: LASIX IV ONE (07:49)
[2019-01-14] MEDS: KCL 10MEQ/100ML 10 MEQ/100 ML BAG IV SCH ×4 (08:00→11:23)
[2019-01-14] MEDS: PROVENTIL IH PRN ×2 (08:04→14:03)
[2019-01-14] MEDS: TRICOR PO SCH (09:17)
[2019-01-14] MEDS: ZESTRIL PO SCH (09:18)
[2019-01-14] MEDS: CLARITIN PO SCH (09:18)
[2019-01-14] MEDS: FLOMAX PO SCH (09:18)
[2019-01-14] MEDS: PLAVIX PO SCH (09:18)
[2019-01-14] MEDS ORDERED: AUGMENTIN 500 MG PO SCH (10:00)
[2019-01-14] MEDS ORDERED: NON-FORMULARY (Cetirizine Hcl 10 MG) PO SCH (10:00)
[2019-01-14] MEDS ORDERED: ROCEPHIN/NS 2 GM/100 ML 2 GM/100 ML BAG IV SCH (10:00)
[2019-01-14] MEDS ORDERED: LEVAQUIN 750MG/150ML 750 MG/150 ML BAG IV SCH ×2 (10:00)
[2019-01-14] MEDS ORDERED: ZITHROMAX PO SCH (10:00)
[2019-01-14] MEDS ORDERED: ATENOLOL 25 MG PO SCH (10:00)
[2019-01-14] MEDS ORDERED: NON-FORMULARY (Plavix 75 MG) PO SCH (10:00)
[2019-01-14] MEDS ORDERED: ZITHROMAX 500 MG in NACL 0.9% 250ML 250 ML IV SCH (10:00)
[2019-01-14] MEDS ORDERED: TENORMIN PO SCH (10:00)
[2019-01-14] MEDS ORDERED: FENOFIBRATE 160 MG PO SCH (10:00)
[2019-01-14] MEDS: ZITHROMAX 500 MG in NACL 0.9% 250ML 250 ML IV SCH (10:58)
[2019-01-15] MEDS: APRESOLINE IV PRN (02:49)
[2019-01-15] MEDS: HEPARIN SUB-Q SCH ×3 (06:07→23:31)
[2019-01-15 07:52] LABS: Hematocrit 29.4 % (30.3-42.9); Hemoglobin 9.9 gm/dl (10.1-14.3); Mean Corpuscular HGB Conc 34 % (30-34); Mean Corpuscular Volume 83 fl (79-97); Platelet Count 313 K/mm3 (140-440); Red Blood Count 3.54 M/mm3 (3.65-5.03); Red Cell Distribution Width 16.5 % (13.2-15.2)
[2019-01-15 08:18] LABS: BUN/Creatinine Ratio 17; Blood Urea Nitrogen 5 mg/dL (7-17); Calcium 7.6 mg/dL (8.4-10.2); Hemolysis Index 0
[2019-01-15] MEDS: PLAVIX PO SCH (09:17)
[2019-01-15] MEDS: FLOMAX PO SCH (09:18)
[2019-01-15] MEDS: TRICOR PO SCH (09:18)
[2019-01-15] MEDS: TENORMIN PO SCH (09:18)
[2019-01-15] MEDS: ZESTRIL PO SCH (09:19)
[2019-01-15] MEDS: ZITHROMAX 500 MG in NACL 0.9% 250ML 250 ML IV SCH (09:19)
[2019-01-15] MEDS: CLARITIN PO SCH (09:19)
--- NOTE | 2019-01-15 09:30 | Progress Note ---
Assessment and Plan Assessment and plan: Patient's an 83-year-old female with past medical history of hypertension, subsequently the disease, also recurrent kidney stones last time was in 1999, chronic back pain. daughter comfirms limited ambulation with assistance. She presents to the ED accompanied by her with complaints of worsening back pain. She relates that 10 over 10 intensity located more to the left flank area at this time. The patient reports that she has chronic pain for 19 years but this is the worst she says that since yesterday. She also complained of chills but no associated nausea vomiting and no recent trauma to her back. She denies any numbness or tingling at this time. She does complain of dysuria with o ccasional cough but no shortness of breath documented. Information was obtained from ED documentation, spanish interpreter/translator, and also grandson who is at bedside. CTAP: IMPRESSION: Osteopenia. Degenerative changes. No acute injury is identified in the lumbar spine. Nephrolithiasis. Mild right hydronephrosis is suspected but partially imaged. Correlate for distal right ureteral stone. CXR: IMPRESSION: Shows worsening infiltrates S/P cysto, rpgs, rt stent (6x 22cm) by urology 01/11/19 Assessment Sepsis secondary to pyelonephritis Acute Respiratory failure ?Worsening PNA, and or volume overload Acute pyelonephritis secondary to nephrolithiasis Nephrolithiasis with mild right hydronephrosis Community acquired Pneumonia-worse per imaging, but not clinically Severe protein calorie malnutrition Hypokalemia Hyponatremia Hypocalcemia Dehydration Hypertension-UNCONTROLLED chronic low back pain Plan Continue abx, and supportive care * Patient is currently on Levaquin and a macrolide * She was noted to have sinus tachycardia requiring initiation of her home dose Atenolol with improvement * Echo is ordered to further evaluate * Blood culture is with no growth but urine culture shows K.Pneumonia * Potassium replacement is ongoing and awaiting repeat labs. Magnesium is pen ding * Patient had a cystoscopy done as noted above and will need to follow with Urology for removal * Aspiration precaution * PT/OT eval and treat. new information shows that patient is able to ambulate with assistance * Patient can be discharged onces clinically improved. I have also ordered CT chest to ensure no other pathology in the lungs. Replace Electrolytes as needed DVT and GI prophylaxis plan discussed with patient and family. History Interval history: Patient seen and examined, this morning, shortness of breath better but per nursing had some SVTs overnight. Family at bedside, patient reports no pain, prior noted wheezing is better. Hospitalist Physical - Physical exam Narrative exam: VITAL SIGNS: Reviewed. GENERAL: The patient appeared No distress. cachectic, Vital signs as documented. HEAD: No signs of head trauma. EYES: Pupils are equal. Extraocular motions intact. EARS: Hearing grossly intact. MOUTH: Oropharynx is normal. NECK: No adenopathy, no JVD. Mildly tender on the right side. CHEST: Chest with wheezing breath sounds bilaterally. but improved air flow. no noted increased WOB No rales, or rhonchi. CARDIAC: Regular rate and rhythm. S1 and S2, without murmurs, gallops, or rubs. VASCULAR: No Edema. Peripheral pulses normal and equal in all extremities. ABDOMEN: Soft, non tender and non distended. No rebound or guarding, and no masses palpated. Bowel Sounds normal. MUSCULOSKELETAL: flank tender Good range of motion of all major joints. Extremities without clubbing, cyanosis or edema. NEUROLOGIC EXAM: Alert and oriented x 3 No focal sensory or strength deficits. Speech normal. Follows commands. PSYCHIATRIC: Mood normal. SKIN: No rash or lesions. normal capillary refill - Constitutional Vitals: Temp Pulse Resp BP Pulse Ox 98.5 F 114 H 22 136/62 95 01/15/19 07:42 01/15/19 07:42 01/15/19 07:42 01/15/19 07:42 01/15/19 07:42 Results - Labs CBC & Chem 7: 01/15/19 07:16 01/15/19 07:16 Labs: Laboratory Last Values WBC 13.5 K/mm3 (4.5-11.0) H 01/15/19 07:16 RBC 3.54 M/mm3 (3.65-5.03) L 01/15/19 07:16 Hgb 9.9 gm/dl (10.1-14.3) L 01/15/19 07:16 Hct 29.4 % (30.3-42.9) L 01/15/19 07:16 MCV 83 fl (79-97) 01/15/19 07:16 MCH 28 pg (28-32) 01/15/19 07:16 MCHC 34 % (30-34) 01/15/19 07:16 RDW 16.5 % (13.2-15.2) H 01/15/19 07:16 Plt Count 313 K/mm3 (140-440) 01/15/19 07:16 Lymph % (Auto) 7.3 % (13.4-35.0) L 01/12/19 11:05 Dare % (Auto) 5.4 % (0.0-7.3) 01/12/19 11:05 Eos % (Auto) 0.0 % (0.0-4.3) 01/12/19 11:05 Baso % (Auto) 0.1 % (0.0-1.8) 01/12/19 11:05 Lymph # 1.1 K/mm3 (1.2-5.4) L 01/12/19 11:05 Dare # 0.9 K/mm3 (0.0-0.8) H 01/12/19 11:05 Eos # 0.0 K/mm3 (0.0-0.4) 01/12/19 11:05 Baso # 0.0 K/mm3 (0.0-0.1) 01/12/19 11:05 Seg Neutrophils % 87.2 % (40.0-70.0) H 01/12/19 11:05 Seg Neutrophils # 13.7 K/mm3 (1.8-7.7) H 01/12/19 11:05 Sodium 134 mmol/L (137-145) L 01/15/19 07:16 Potassium 2.8 mmol/L (3.6-5.0) L* 01/15/19 07:16 Chloride 96.0 mmol/L (98-107) L 01/15/19 07:16 Carbon Dioxide 23 mmol/L (22-30) 01/15/19 07:16 18 mmol/L 01/15/19 07:16 BUN 5 mg/dL (7-17) L 01/15/19 07:16 0.3 mg/dL (0.7-1.2) L 01/15/19 07:16 Estimated GFR > 60 ml/min 01/15/19 07:16 17 % 01/15/19 07:16 Glucose 135 mg/dL (65-100) H 01/15/19 07:16 POC Glucose 103 (70-105) 01/12/19 22:35 Lactic Acid 2.00 mmol/L (0.7-2.0) 01/11/19 04:56 Calcium 7.6 mg/dL (8.4-10.2) L 01/15/19 07:16 Magnesium 1.70 mg/dL (1.7-2.3) 01/15/19 07:16 0.60 mg/dL (0.1-1.2) 01/11/19 04:56 AST 19 units/L (5-40) 01/11/19 04:56 ALT 17 units/L (7-56) 01/11/19 04:56 63 units/L (35-129) 01/11/19 04:56 25 units/L (30-135) L 01/11/19 04:56 6.8 g/dL (6.3-8.2) 01/11/19 04:56 2.9 g/dL (3.9-5) L 01/11/19 04:56 0.7 % 01/11/19 04:56 Yellow (Yellow) 01/11/19 04:00 Slightly-cloudy (Clear) 01/11/19 04:00 6.0 (5.0-7.0) 01/11/19 04:00 Ur Specific [place] 1.012 (1.003-1.030) 01/11/19 04:00 100 mg/dl mg/dL (Negative) 01/11/19 04:00 150 mg/dL (Negative) 01/11/19 04:00 Neg mg/dL (Negative) 01/11/19 04:00 Mod (Negative) 01/11/19 04:00 Pos (Negative) 01/11/19 04:00 Neg (Negative) 01/11/19 04:00 < 2.0 mg/dL (<2.0) 01/11/19 04:00 Ur Leukocyte Esterase Mod (Negative) 01/11/19 04:00 63.0 /HPF (0.0-6.0) H 01/11/19 04:00 41.0 /HPF (0.0-6.0) 01/11/19 04:00 U Epithel Cells (Auto) 3.0 /HPF (0-13.0) 01/11/19 04:00 4+ /HPF (Negative) 01/11/19 04:00 Hyaline Casts 3 /LPF 01/11/19 04:00 Few /HPF 01/11/19 04:00 Blood Type A POSITIVE 01/11/19 04:56 Antibody Screen Negative 01/11/19 04:56 Active Medications - Current Medications Current Medications: Generic Name Dose Route Start Last Admin Trade Name Freq PRN Reason Stop Dose Admin Albuterol 2.5 mg 01/14/19 07:50 01/14/19 14:03 Proventil IH 2.5 mg Q4HRT PRN Administration Shortness Of Breath Atenolol 25 mg 01/15/19 10:00 01/15/19 09:18 Tenormin PO 25 mg QDAY ROSE Administration Benzonatate 200 mg 01/15/19 14:00 Tessalon Perles PO Q8HR ROSE Clopidogrel Bisulfate 75 mg 01/14/19 10:00 01/15/19 09:17 Plavix PO 75 mg QDAY ROSE Administration Fenofibrate 145 mg 01/14/19 10:00 01/15/19 09:18 Tricor PO 145 mg DAILY ROSE Administration Heparin Sodium (Porcine) 5,000 unit 01/11/19 14:00 01/15/19 06:07 Heparin SUB-Q 5,000 unit Q8HR ROSE Administration Hydralazine HCl 10 mg 01/13/19 09:46 01/15/19 02:49 Apresoline IV 10 mg Q4HR PRN Administration Hypertension Sodium Chloride 1,000 mls @ 75 mls/hr 01/11/19 10:00 01/14/19 21:14 Nacl 0.9% 1000 Ml IV 125 mls/hr DIRECT ROSE Administration Sodium Chloride 1,000 mls @ 75 mls/hr 01/11/19 15:00 01/14/19 21:12 Nacl 0.45% 1000 Ml IV 0 mls/hr DIRECT ROSE Infusion Levofloxacin/Dextrose 750 mg in 150 mls @ 100 mls/hr 01/14/19 10:00 01/14/19 09:19 Levaquin 750mg/150ml IV 100 mls/hr Q48HR ROSE Administration Protocol Azithromycin 500 mg/ Sodium 250 mls @ 250 mls/hr 01/14/19 10:00 01/15/19 09:19 Chloride IV 250 mls/hr Q24HR ROSE Administration Potassium Chloride 10 meq in 100 mls @ 100 mls/hr 01/15/19 10:00 Kcl 10meq/100ml IV 01/15/19 13:59 Q1H ROSE Magnesium Sulfate 1 gm/ Sodium 52 mls @ 52 mls/hr 01/15/19 09:17 Chloride IV 01/15/19 10:16 ONCE ONE Lisinopril 40 mg 01/13/19 10:00 01/15/19 09:19 Zestril PO 40 mg QDAY ROSE Administration Loratadine 10 mg 01/14/19 10:00 01/15/19 09:19 Claritin PO 10 mg DAILY ROSE Administration Potassium Chloride 40 meq 01/15/19 09:17 Potassium Chloride PO 01/15/19 09:18 ONCE ONE Tamsulosin HCl 0.4 mg 01/11/19 10:00 01/15/19 09:18 Flomax PO 0.4 mg QDAY ROSE Administration Nutrition/Malnutrition Assess - Dietary Evaluation Nutrition/Malnutrition Findings: Nutrition Notes Start: 01/11/19 16:09 Freq: Status: Active Protocol: Document 01/12/19 15:46 RM (Rec: 01/12/19 15:51 RM [id number]) Nutrition Notes Initial or Follow up Assessment Current Diagnosis Sepsis,Hypertension Other Pertinent Diagnosis Pyelonephritis, Nephrolithiasis Current Diet Regular Labs/Tests Reviewed Pertinent Medications Reviewed Height 5 ft 2 in Weight 55 kg Usual Body Weight 57.27 kg Alexis Body Weight (kg) 50.00 BMI 22.1 Weight change and time frame 4% wt loss X 4 months. Subjective/Other Information Pt and pt daughter in room. Pt does not speak uzbek so daughter acted as spanish interpreter/translator or spoke on behalf of pt. 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 Stated pt appetite is poor now and that she does not like the facility meals because she is used to Chinese food. Noted lunched at bedside w/ only fruit and green peas from chicken pot pie eaten. Stated UBW was 126 lbs 4 months ago. No temporal or orbital wasting . Burn Absent Trauma Absent #1 Nutrition Diagnosis Inadequate oral intake Etiology food preferences As Evidenced by Signs and Symptoms lunch at bedside w/only fruit and green peas eaten Is patient on ventilator? No Is Patient Ambulatory and/or Out of Bed No REE-([facility]-confined to bed) 1151.304 Kcal/Kg value to use for calculation 25 Approximate Energy Requirements Using 1375 kcal/Kg Calculation Used for Recommendations [facility] Additional Notes Protein Needs: 83-94g (1-1.2g/ kg) Fluid Needs: 1 ml/kcal Nutrition Intervention Change Diet Order: Continue current Add Supplement/Snack (indicate name/kcal Ensure Enlive Chocolate 1 /protein ) daily Provides kCal: 350 Provides Protein (gm) 20 Goal #1 Meet at least 75% of calorie and protein needs via PO and ONS intakes Follow-Up By: 01/16/19 Additional Comments Follow for PO and ONS intakes
[2019-01-15] MEDS ORDERED: POTASSIUM CHLORIDE PO ONE ×2 (10:00→13:30)
[2019-01-15] MEDS ORDERED: MAGNESIUM SULFATE 1 GM in NACL 0.9% 50 ML IV ONE (11:00)
--- NOTE | 2019-01-15 12:07 | Cat Scan Report ---
CT CHEST WITHOUT CONTRAST: HISTORY: Shortness of breath. COMPARISON: Chest x-ray dated 01/13/19. TECHNIQUE: Helical CT in 1.25mm intervals without IV contrast. Sagittal and coronal reformatted images. FINDINGS: Thyroid gland: Normal. Tracheobronchial tree: Normal. Esophagus: Normal. Heart: Borderline to mild cardiomegaly. Pericardium: Normal. Mediastinum: Moderate aortic calcifications. No aneurysm or mediastinal mass. Lung [place]: There is moderate patchy peribronchial infiltrate throughout the right upper lobe and right middle lobe. This could represent right lung pneumonia or unilateral pulmonary edema. The aerated left lung is unremarkable. Pleural Spaces: There are moderate bilateral pleural effusions which compress the lower lobes, right greater than left. Musculoskeletal: Thoracic spondylosis. No fracture or suspicious bony lesion is identified. Mild osteopenia. IMPRESSION: Mild CHF. Right lung infiltrate concerning for pneumonia or unilateral pulmonary edema.
[2019-01-15] MEDS: KCL 10MEQ/100ML 10 MEQ/100 ML BAG IV SCH ×4 (12:59→17:53)
[2019-01-15] MEDS: TESSALON PERLES PO SCH ×2 (14:19→23:31)
[2019-01-15] MEDS ORDERED: VANCOMYCIN PHARMACY TO DOSE IV SCH (15:00)
[2019-01-15] MEDS: LASIX IV SCH (15:08)
[2019-01-15] MEDS ORDERED: VANCOMYCIN/NS 1 GM/250 ML 1 GM/250 ML BAG IV ONE (16:00)
[2019-01-15 19:18] LABS: INR 1.1 (0.87-1.13)
[2019-01-15 19:19] LABS: Partial Thromboplastin Time 41.7 Sec. (24.2-36.6)
[2019-01-15] MEDS: PROVENTIL IH PRN (20:30)
[2019-01-15] MEDS: MAXIPIME/NS 2 GM/100 ML 2 GM/100 ML BAG IV SCH (23:29)
[2019-01-15] MEDS ORDERED: PERCOCET 5/325 PO PRN (23:56)
[2019-01-15] MEDS ORDERED: TYLENOL PO PRN (23:56)
[2019-01-16] MEDS: TESSALON PERLES PO SCH ×3 (05:27→21:51)
[2019-01-16] MEDS: LASIX IV SCH (05:28)
[2019-01-16] MEDS: HEPARIN SUB-Q SCH ×3 (05:32→21:51)
[2019-01-16 06:02] LABS: Hematocrit 31.9 % (30.3-42.9); Hemoglobin 10.6 gm/dl (10.1-14.3); Mean Corpuscular HGB Conc 33 % (30-34); Mean Corpuscular Volume 86 fl (79-97); Platelet Count 348 K/mm3 (140-440); Red Blood Count 3.73 M/mm3 (3.65-5.03); Red Cell Distribution Width 16.4 % (13.2-15.2)
[2019-01-16 06:27] LABS: BUN/Creatinine Ratio 20; Blood Urea Nitrogen 8 mg/dL (7-17); Calcium 8.1 mg/dL (8.4-10.2); Hemolysis Index 1
[2019-01-16] MEDS ORDERED: VANCOMYCIN 750 MG in NACL 0.9% 250ML 250 ML IV SCH (10:00)
--- NOTE | 2019-01-16 10:05 | Consultation ---
History of Present Illness - Reason for Consult Consult date: 01/16/19 pneumonia Requesting physician: DON DIAZ - History of Present Illness 83 y/o male with history of hypertension, recurrent kidney stones and chronic back pain admitted on 01/11/2019 due to a week-history of worsening back pain R>L associated with some dysuria, generalized weakness and 24 hour-history of fever and chills. She speaks [place]ian. Her daughter reports she has been also coughing, dry cough for 1-2 weeks. Interview is limited. Per her has been unable to walk for one year. In the ED, temp 102.2, HR 96, R 16, O2 sat 95%, BP 147/63. WBC 17. Hg 10.9. Plat 310. Creat 0.6. Lactate 2. LFTs normal. UA 63 wbc, mod LE, +nitrates. Blood culture 01/11/2019 no growth so far. CXR showed right lung infiltrate. Patient was taken to the OR for cystoscopy RPGS and right stent placement on 01/11/2019. Patient noted with SOB and tachycardia. Repeat CXR showed worsening right pneumonia. CT chest showed moderate patchy peribronchial infiltrate throughout the right upper lobe and right middle lobe and moderate bilateral pleural effusion. Review of Systems: unable to obtain Past History Past Medical History: hypertension, other (NEPHROLITHASIS) Past Surgical History: Other Social history: no significant social history, , lives with family. denies: smoking Family history: no significant family history Medications and Allergies Allergies Allergy/AdvReac Type Severity Reaction Status Date / Time No Known Allergies Allergy Verified 01/11/19 04:28 Home Medications Medication Instructions Recorded Confirmed Last Taken Type Atenolol 25 mg PO DAILY 01/13/19 01/13/19 Unknown History Cetirizine HCl 10 mg PO DAILY 01/13/19 01/13/19 Unknown History Fenofibrate 160 mg PO DAILY 01/13/19 01/13/19 Unknown History Plavix 75 mg PO DAILY 01/13/19 01/13/19 Unknown History Active Meds: Active Medications Acetaminophen (Tylenol) 650 mg PO Q6H PRN PRN Reason: Pain, Mild (1-3) Albuterol (Proventil) 2.5 mg IH Q4HRT PRN PRN Reason: Shortness Of Breath Last Admin: 01/15/19 20:30 Dose: 2.5 mg Documented by: Atenolol (Tenormin) 25 mg PO QDAY [facility] Last Admin: 01/15/19 09:18 Dose: 25 mg Documented by: Benzonatate (Tessalon Perles) 200 mg PO Q8HR [facility] Last Admin: 01/16/19 05:27 Dose: 200 mg Documented by: Clopidogrel Bisulfate (Plavix) 75 mg PO QDAY [facility] Last Admin: 01/15/19 09:17 Dose: 75 mg Documented by: Fenofibrate (Tricor) 145 mg PO DAILY [facility] Last Admin: 01/15/19 09:18 Dose: 145 mg Documented by: Furosemide (Lasix) 40 mg IV DAILY@0600 [facility] Last Admin: 01/16/19 05:28 Dose: 40 mg Documented by: Heparin Sodium (Porcine) (Heparin) 5,000 unit SUB-Q Q8HR [facility] Last Admin: 01/16/19 05:32 Dose: Not Given Documented by: Hydralazine HCl (Apresoline) 10 mg IV Q4HR PRN PRN Reason: Hypertension Last Admin: 01/15/19 02:49 Dose: 10 mg Documented by: Cefepime HCl (Maxipime/Ns 2 Gm/100 Ml) 2 gm in 100 mls @ 200 mls/hr IV Q12HR [facility]; Protocol Last Admin: 01/15/19 23:29 Dose: 200 mls/hr Documented by: Vancomycin HCl 750 mg/ Sodium (Chloride) 265 mls @ 166.667 mls/hr IV Q24HR@1800 [facility] Lisinopril (Zestril) 40 mg PO QDAY [facility] Last Admin: 01/15/19 09:19 Dose: 40 mg Documented by: Loratadine (Claritin) 10 mg PO DAILY [facility] Last Admin: 01/15/19 09:19 Dose: 10 mg Documented by: Oxycodone/Acetaminophen (Percocet 5/325) 1 tab PO Q6H PRN PRN Reason: Pain, Moderate (4-6) Last Admin: 01/16/19 00:14 Dose: 1 tab Documented by: Potassium Chloride (Potassium Chloride) 40 meq FEEDTUBE Q6H [facility] Stop: 01/16/19 15:01 Tamsulosin HCl (Flomax) 0.4 mg PO QDAY [facility] Last Admin: 01/15/19 09:18 Dose: 0.4 mg Documented by: Physical Examination - Physical Exam Narrative exam: General appearance: Alert in NAD pleasant Eyes: anicteric sclerae, moist conjunctivae; no lid-lag; PERRLA HENT: Atraumatic; oropharynx clear edentulous Neck: Trachea midline; supple, no thyromegaly or lymphadenopathy Lungs: RUL crackles CV: tachycardia Abdomen: Soft, non-tender; no masses or hepatosplenomegaly Extremities: no edema Skin: Normal temperature, turgor and texture; no rash, ulcers or subcutaneous nodules Psych:no agitated. Neuro: alert and oriented x 3. Moving all extermities - Constitutional Vitals: Vital Signs Temp Pulse Resp BP Pulse Ox 98.7 F 115 H 18 167/96 96 01/16/19 07:58 01/16/19 07:58 01/16/19 07:58 01/16/19 07:58 01/16/19 07:58 Temperature -Last 24 Hours Temperature 98.7 F Temperature 97.9 F Temperature 97.4 F Temperature 97.5 F Results - Labs CBC & Chem 7: 01/16/19 05:41 01/16/19 05:41 Labs: Abnormal lab results 01/15/19 01/16/19 01/16/19 Range/Units 18:34 05:41 05:41 WBC 12.5 H (4.5-11.0) K/mm3 RDW 16.4 H (13.2-15.2) % APTT 41.7 H (24.2-36.6) Sec. Potassium 3.3 L D (3.6-5.0) mmol/L Creatinine 0.4 L (0.7-1.2) mg/dL Calcium 8.1 L (8.4-10.2) mg/dL Assessment and Plan Cultures: Blood culture 01/11/2019 no growth so far. Urine culture 01/11/2019 Klebsiella 10-100k Assessment: 83 y/o male with history of hypertension, recurrent kidney stones and chronic back pain admitted on 01/11/2019 due to a week-history of worsening back pain R>L associated with some dysuria, generalized weakness and 24 hour-history of fever and chills: 1) Severe Sepsis: Present on admission, manifested by fever, tachycardia, leukocytosis. Etiology likely complicated UTI +/- pneumonia. 2) Complicated UTI with ureteral stone: UA 63 wbc, mod LE, +nitrates. Lumbar CT showed Nephrolithiasis. Mild right hydronephrosis is suspected but partially imaged. Correlate for distal right ureteral stone. S/p OR for cystoscopy RPGS and right stent placement on 01/11/2019. Urine culture 01/11/2019 Klebsiella 10- 100k. 3) Complicated RUL/RML pneumonia with moderate pleural effusion: initial CXR showed a mild RML infiltrate which became worse. Patient noted with SOB and tachycardia. Repeat CXR showed worsening right pneumonia. CT chest showed moderate patchy peribronchial infiltrate throughout the right upper lobe and right middle lobe and moderate bilateral pleural effusion. DDX Aspiration pneumonia, HAP. ?pleural effusion parapneumonic v/s heart failure. Recommendations: - agree with pulmonary consult, may need diagnostic thoracentesis/bronch - obtain TTE - continue vancomycin with PK consult, cefepime - add flagyl Will follow. Discussed with Dr Valentina Barrett MD Infectious Diseases Software Team Leader [facility] M [phone] O [phone]
--- NOTE | 2019-01-16 12:14 | Procedure Note ---
Date of procedure: 01/16/19 Pre-op diagnosis: right pleural effusion Post-op diagnosis: same Procedure: US thoracentesis, right Findings: moderate right pleural effusion Anesthesia: local Surgeon: COLLEEN TYLER Estimated blood loss: none Pathology: list (120cc) Specimen disposition: to lab Condition: stable Disposition: floor
[2019-01-16] MEDS: PLAVIX PO SCH (12:28)
[2019-01-16] MEDS: ZESTRIL PO SCH (12:29)
[2019-01-16] MEDS: POTASSIUM CHLORIDE FEEDTUBE SCH ×2 (12:29→17:12)
[2019-01-16] MEDS: CLARITIN PO SCH (12:29)
[2019-01-16] MEDS: TENORMIN PO SCH (12:29)
[2019-01-16] MEDS: FLOMAX PO SCH (12:29)
[2019-01-16] MEDS: TRICOR PO SCH (12:29)
--- NOTE | 2019-01-16 12:29 | Ultrasound Report ---
ULTRASOUND THORACENTESIS History: Therapeutic pleural effusion Description of procedure: Informed consent was obtained from a family member who spoke Kyrgyz. Sterile technique was utilized. 1% lidocaine for skin anesthesia. Using ultrasound guidance, a 5 [place] centesis needle was advanced into the right pleural space. There was spontaneous return of clear yellow fluid. 1400 cc of fluid was aspirated. 120 cc of fluid was sent to the lab for analysis. No complications. Impression: Successful ultrasound-guided right thoracentesis.
[2019-01-16] MEDS: MAXIPIME/NS 2 GM/100 ML 2 GM/100 ML BAG IV SCH ×2 (12:30→21:50)
[2019-01-16 12:45] LABS: Total Cells Counted 100 /mm3
--- NOTE | 2019-01-16 12:50 | XRay Report ---
AP CHEST: HISTORY: Right pleural effusion, shortness of breath Recent ultrasound-guided right thoracentesis was performed in which 1400 cc of fluid was removed. There is complete evacuation of the right pleural fluid. No pneumothorax is visualized. Mild cardiomegaly and pulmonary venous congestion are identified which have improved. IMPRESSION: Complete evacuation of the right pleural effusion. No pneumothorax.
[2019-01-16] MEDS: FLAGYL 500 MG/100 ML 500 MG/100 ML BAG IV SCH ×2 (13:37→21:50)
--- NOTE | 2019-01-16 16:12 | Consultation ---
History of Present Illness Consult date: 01/16/19 Requesting physician: DON DIAZ Reason for consult: dyspnea, hypoxemia, pneumonia, pleural effusion History of present illness: 83 y/o female, only speaks Azeri, admitted with shortness of breath. CXR's have actually worsened while in house. CT scan of chest showed bilateral pleural effusions, right >left and right upper lobe consolidation with air bronchograms consistent with pneumonia. Pulmonary consulted yesterday for dyspena. Actually reviewed the case with ID this am before knowing I was on consult. With the acuity of changes in patient's imaging, doubt this is TB. Past History Past Medical History: hypertension, other (NEPHROLITHASIS) Past Surgical History: Other Social history: no significant social history, , lives with family. denies: smoking Family history: no significant family history Medications and Allergies Allergies Allergy/AdvReac Type Severity Reaction Status Date / Time No Known Allergies Allergy Verified 01/11/19 04:28 Home Medications Medication Instructions Recorded Confirmed Last Taken Type Atenolol 25 mg PO DAILY 01/13/19 01/13/19 Unknown History Cetirizine HCl 10 mg PO DAILY 01/13/19 01/13/19 Unknown History Fenofibrate 160 mg PO DAILY 01/13/19 01/13/19 Unknown History Plavix 75 mg PO DAILY 01/13/19 01/13/19 Unknown History Doxycycline Monohydrate 100 mg PO BID 7 Days capsule 01/18/19 Unknown Rx Lisinopril [Zestril TAB] 40 mg PO QDAY #30 tablet 01/18/19 Unknown Rx cefUROXime [Ceftin] 500 mg PO Q12H 7 Days tablet 01/18/19 Unknown Rx Active Meds: Active Medications Acetaminophen (Tylenol) 650 mg PO Q6H PRN PRN Reason: Pain, Mild (1-3) Albuterol (Proventil) 2.5 mg IH Q4HRT PRN PRN Reason: Shortness Of Breath Last Admin: 01/15/19 20:30 Dose: 2.5 mg Documented by: Atenolol (Tenormin) 25 mg PO QDAY [facility] Last Admin: 01/16/19 12:29 Dose: 25 mg Documented by: Benzonatate (Tessalon Perles) 200 mg PO Q8HR [facility] Last Admin: 01/16/19 13:37 Dose: 200 mg Documented by: Clopidogrel Bisulfate (Plavix) 75 mg PO QDAY [facility] Last Admin: 01/16/19 12:28 Dose: 75 mg Documented by: Fenofibrate (Tricor) 145 mg PO DAILY [facility] Last Admin: 01/16/19 12:29 Dose: 145 mg Documented by: Furosemide (Lasix) 40 mg IV DAILY@0600 [facility] Last Admin: 01/16/19 05:28 Dose: 40 mg Documented by: Heparin Sodium (Porcine) (Heparin) 5,000 unit SUB-Q Q8HR [facility] Last Admin: 01/16/19 13:37 Dose: 5,000 unit Documented by: Hydralazine HCl (Apresoline) 10 mg IV Q4HR PRN PRN Reason: Hypertension Last Admin: 01/15/19 02:49 Dose: 10 mg Documented by: Cefepime HCl (Maxipime/Ns 2 Gm/100 Ml) 2 gm in 100 mls @ 200 mls/hr IV Q12HR [facility]; Protocol Last Admin: 01/16/19 12:30 Dose: 200 mls/hr Documented by: Vancomycin HCl 750 mg/ Sodium (Chloride) 265 mls @ 166.667 mls/hr IV Q24HR@1800 [facility] Metronidazole (Flagyl 500 Mg/100 Ml) 500 mg in 100 mls @ 100 mls/hr IV Q8HR [facility]; Protocol Last Admin: 01/16/19 13:37 Dose: 100 mls/hr Documented by: Lisinopril (Zestril) 40 mg PO QDAY [facility] Last Admin: 01/16/19 12:29 Dose: 40 mg Documented by: Loratadine (Claritin) 10 mg PO DAILY [facility] Last Admin: 01/16/19 12:29 Dose: 10 mg Documented by: Oxycodone/Acetaminophen (Percocet 5/325) 1 tab PO Q6H PRN PRN Reason: Pain, Moderate (4-6) Last Admin: 01/16/19 00:14 Dose: 1 tab Documented by: Tamsulosin HCl (Flomax) 0.4 mg PO QDAY [facility] Last Admin: 01/16/19 12:29 Dose: 0.4 mg Documented by: Physical Examination Vital signs: Vital Signs BP 147/63 01/11/19 03:58 Results - Laboratory Findings CBC and BMP: 01/17/19 07:04 01/17/19 07:04 PT/INR, D-dimer PT 14.9 Sec. (12.2-14.9) 01/15/19 18:34 INR 1.10 (0.87-1.13) 01/15/19 18:34 Abnormal lab findings: Abnormal Labs 01/11/19 01/11/19 01/11/19 04:00 04:56 04:56 WBC 17.6 H RBC Hgb Hct RDW 16.2 H Lymph % (Auto) 4.5 L Lymph # 0.8 L Ogle # 1.2 H Seg Neutrophils % 88.0 H Seg Neutrophils # 15.5 H APTT Sodium 134 L Potassium 3.3 L Chloride 97.6 L BUN Creatinine 0.4 L Glucose 105 H Calcium 8.2 L Total Creatine Kinase 25 L C-Reactive Protein Albumin 2.9 L Urine WBC (Auto) 63.0 H 01/12/19 01/12/19 01/13/19 11:05 11:05 04:23 WBC 15.7 H 16.7 H RBC Hgb Hct RDW 16.5 H 16.3 H Lymph % (Auto) 7.3 L Lymph # 1.1 L Ogle # 0.9 H Seg Neutrophils % 87.2 H Seg Neutrophils # 13.7 H APTT Sodium Potassium Chloride BUN Creatinine 0.5 L Glucose 161 H Calcium 8.2 L Total Creatine Kinase C-Reactive Protein Albumin Urine WBC (Auto) 01/14/19 01/14/19 01/15/19 04:14 04:14 07:16 WBC 14.3 H 13.5 H RBC 3.57 L 3.54 L Hgb 9.9 L Hct 29.4 L RDW 16.6 H 16.5 H Lymph % (Auto) Lymph # Ogle # Seg Neutrophils % Seg Neutrophils # APTT Sodium 133 L Potassium 2.7 L* D Chloride 94.6 L BUN 5 L Creatinine 0.3 L Glucose 138 H Calcium 8.0 L Total Creatine Kinase C-Reactive Protein Albumin Urine WBC (Auto) 01/15/19 01/15/19 01/16/19 07:16 18:34 05:41 WBC 12.5 H RBC Hgb Hct RDW 16.4 H Lymph % (Auto) Lymph # Ogle # Seg Neutrophils % Seg Neutrophils # APTT 41.7 H Sodium 134 L Potassium 2.8 L* Chloride 96.0 L BUN 5 L Creatinine 0.3 L Glucose 135 H Calcium 7.6 L Total Creatine Kinase C-Reactive Protein Albumin Urine WBC (Auto) 01/16/19 01/16/19 05:41 05:41 WBC RBC Hgb Hct RDW Lymph % (Auto) Lymph # Ogle # Seg Neutrophils % Seg Neutrophils # APTT Sodium Potassium 3.3 L D Chloride BUN Creatinine 0.4 L Glucose Calcium 8.1 L Total Creatine Kinase C-Reactive Protein 19.60 H Albumin Urine WBC (Auto) - Diagnostic Findings Chest x-ray: image reviewed CT scan - chest: image reviewed Assessment and Plan 83 y/o with bilateral pleural effusions, right upper lobe pneumonia that appears to be worsening. 1. Agree with thora, already done. Cell count ordered. Hopefully cultures and cytology as well. Most likely this is related to some form of acute inflammatory response. 2. If PFA does not given any answers, bronch is not unreasonable. Will check the schedule for and Tuesday 3. Appreciate ID help, follow their recs in regards to abx therapy. Will continue to follow along with you.
--- NOTE | 2019-01-16 16:35 | Progress Note ---
Assessment and Plan Assessment and plan: Patient is 83-year-old female with hypertension, recurrent kidney stones last time was in 1999, chronic back pain. She presented to the ED accompanied by her with complaints of worsening back pain. She relates that 10 over 10 intensity located more to the left flank area at this time. The patient reports that she has chronic pain for 19 years but this is worse. She also complained of chills but no associated nausea vomiting and no recent trauma to her back. She denies any numbness or tingling at this time. She does complain of dysuria with occasional cough but no shortness of breath documented. CTAP: IMPRESSION: Osteopenia. Degenerative changes. No acute injury is identified in the lumbar spine. Nephrolithiasis. Mild right hydronephrosis is suspected but partially imaged. Correlate for distal right ureteral stone. CXR: IMPRESSION: Shows worsening infiltrates S/P cysto, rpgs, rt stent (6x 22cm) by urology 01/11/19 Assessment Sepsis secondary to pyelonephritis Acute Respiratory failure ?Worsening PNA, and or volume overload Acute pyelonephritis secondary to nephrolithiasis Nephrolithiasis with mild right hydronephrosis Community acquired Pneumonia-worse per imaging, but not clinically Severe protein calorie malnutrition Hypokalemia Hyponatremia Hypocalcemia Dehydration Hypertension-UNCONTROLLED chronic low back pain Right pleural effusion s/p right thoracentesis today Plan Continue abx, and supportive care * Patient is currently on Levaquin and a macrolide * She was noted to have sinus tachycardia requiring initiation of her home dose Atenolol with improvement * Echo is ordered to further evaluate * Blood culture is with no growth but urine culture shows K.Pneumonia * Potassium replacement is ongoing and awaiting repeat labs. Magnesium is pending * Patient had a cystoscopy done as noted above and will need to follow with Urology for removal * Aspiration precaution * PT/OT eval and treat. new information shows that patient is able to ambulate with assistance * Patient can be discharged onces clinically improved. Replace Electrolytes as needed DVT and GI prophylaxis plan discussed with patient and family. Poss dc in 1-2 days History Interval history: s/p right thoracentesis today Hospitalist Physical - Physical exam Narrative exam: Gen: Not in acute distress, lying in bed, HEENT: Normocephalic, atraumatic Neck: supple, no JVD Heart: S1 and S2 reg, no murmurs, rubs or gallop Lungs: Clear, no crackles, no wheeze Abd: soft, non tender, non distended, normal BS Ext: No edema, no clubbing, no cyanosis, Neuro: Awake,alert, oriented x 3, moves all ext, non focal Psych:Normal mood - Constitutional Vitals: Temp Pulse Resp BP Pulse Ox 99.3 F 97 H 20 142/81 96 01/16/19 14:16 01/16/19 14:16 01/16/19 14:16 01/16/19 14:16 01/16/19 14:16 Results - Labs CBC & Chem 7: 01/16/19 05:41 01/16/19 05:41 Labs: Laboratory Last Values WBC 12.5 K/mm3 (4.5-11.0) H 01/16/19 05:41 RBC 3.73 M/mm3 (3.65-5.03) 01/16/19 05:41 Hgb 10.6 gm/dl (10.1-14.3) 01/16/19 05:41 Hct 31.9 % (30.3-42.9) 01/16/19 05:41 MCV 86 fl (79-97) 01/16/19 05:41 MCH 28 pg (28-32) 01/16/19 05:41 MCHC 33 % (30-34) 01/16/19 05:41 RDW 16.4 % (13.2-15.2) H 01/16/19 05:41 Plt Count 348 K/mm3 (140-440) 01/16/19 05:41 Lymph % (Auto) 7.3 % (13.4-35.0) L 01/12/19 11:05 [place] % (Auto) 5.4 % (0.0-7.3) 01/12/19 11:05 Eos % (Auto) 0.0 % (0.0-4.3) 01/12/19 11:05 Baso % (Auto) 0.1 % (0.0-1.8) 01/12/19 11:05 Lymph # 1.1 K/mm3 (1.2-5.4) L 01/12/19 11:05 [place] # 0.9 K/mm3 (0.0-0.8) H 01/12/19 11:05 Eos # 0.0 K/mm3 (0.0-0.4) 01/12/19 11:05 Baso # 0.0 K/mm3 (0.0-0.1) 01/12/19 11:05 Seg Neutrophils % 87.2 % (40.0-70.0) H 01/12/19 11:05 Seg Neutrophils # 13.7 K/mm3 (1.8-7.7) H 01/12/19 11:05 PT 14.9 Sec. (12.2-14.9) 01/15/19 18:34 INR 1.10 (0.87-1.13) 01/15/19 18:34 APTT 41.7 Sec. (24.2-36.6) H 01/15/19 18:34 Sodium 137 mmol/L (137-145) 01/16/19 05:41 Potassium 3.3 mmol/L (3.6-5.0) L D 01/16/19 05:41 Chloride 100.2 mmol/L (98-107) 01/16/19 05:41 Carbon Dioxide 25 mmol/L (22-30) 01/16/19 05:41 15 mmol/L 01/16/19 05:41 BUN 8 mg/dL (7-17) 01/16/19 05:41 0.4 mg/dL (0.7-1.2) L 01/16/19 05:41 Estimated GFR > 60 ml/min 01/16/19 05:41 20 % 01/16/19 05:41 Glucose 93 mg/dL (65-100) 01/16/19 05:41 POC Glucose 103 (70-105) 01/12/19 22:35 Lactic Acid 2.00 mmol/L (0.7-2.0) 01/11/19 04:56 Calcium 8.1 mg/dL (8.4-10.2) L 01/16/19 05:41 Magnesium 1.70 mg/dL (1.7-2.3) 01/15/19 07:16 0.60 mg/dL (0.1-1.2) 01/11/19 04:56 AST 19 units/L (5-40) 01/11/19 04:56 ALT 17 units/L (7-56) 01/11/19 04:56 63 units/L (35-129) 01/11/19 04:56 25 units/L (30-135) L 01/11/19 04:56 19.60 mg/dL (0.00-1.30) H 01/16/19 05:41 6.8 g/dL (6.3-8.2) 01/11/19 04:56 2.9 g/dL (3.9-5) L 01/11/19 04:56 0.7 % 01/11/19 04:56 Yellow (Yellow) 01/11/19 04:00 Slightly-cloudy (Clear) 01/11/19 04:00 6.0 (5.0-7.0) 01/11/19 04:00 Ur Specific [place] 1.012 (1.003-1.030) 01/11/19 04:00 100 mg/dl mg/dL (Negative) 01/11/19 04:00 150 mg/dL (Negative) 01/11/19 04:00 Neg mg/dL (Negative) 01/11/19 04:00 Mod (Negative) 01/11/19 04:00 Pos (Negative) 01/11/19 04:00 Neg (Negative) 01/11/19 04:00 < 2.0 mg/dL (<2.0) 01/11/19 04:00 Ur Leukocyte Esterase Mod (Negative) 01/11/19 04:00 63.0 /HPF (0.0-6.0) H 01/11/19 04:00 41.0 /HPF (0.0-6.0) 01/11/19 04:00 U Epithel Cells (Auto) 3.0 /HPF (0-13.0) 01/11/19 04:00 4+ /HPF (Negative) 01/11/19 04:00 Hyaline Casts 3 /LPF 01/11/19 04:00 Few /HPF 01/11/19 04:00 Fluid Type Pleural 01/16/19 10:48 Fluid Color Yellow 01/16/19 10:48 Fluid Appearance Hazy 01/16/19 10:48 Fluid WBC 380 /mm3 01/16/19 10:48 Fluid RBC 221 /mm3 01/16/19 10:48 Fluid Seg Neutrophils 80.0 % 01/16/19 10:48 Fluid Lymphocytes 7.0 % 01/16/19 10:48 Fluid Monocytes 13.0 % 01/16/19 10:48 Blood Type A POSITIVE 01/11/19 04:56 Antibody Screen Negative 01/11/19 04:56 Active Medications - Current Medications Current Medications: Generic Name Dose Route Start Last Admin Trade Name Freq PRN Reason Stop Dose Admin Acetaminophen 650 mg 01/15/19 23:56 Tylenol PO Q6H PRN Pain, Mild (1-3) Albuterol 2.5 mg 01/14/19 07:50 01/15/19 20:30 Proventil IH 2.5 mg Q4HRT PRN Administration Shortness Of Breath Atenolol 25 mg 01/15/19 10:00 01/16/19 12:29 Tenormin PO 25 mg QDAY [facility] Administration Benzonatate 200 mg 01/15/19 14:00 01/16/19 13:37 Tessalon Perles PO 200 mg Q8HR [facility] Administration Clopidogrel Bisulfate 75 mg 01/14/19 10:00 01/16/19 12:28 Plavix PO 75 mg QDAY [facility] Administration Fenofibrate 145 mg 01/14/19 10:00 01/16/19 12:29 Tricor PO 145 mg DAILY [facility] Administration Furosemide 40 mg 01/15/19 15:00 01/16/19 05:28 Lasix IV 40 mg DAILY@0600 [facility] Administration Heparin Sodium (Porcine) 5,000 unit 01/11/19 14:00 01/16/19 13:37 Heparin SUB-Q 5,000 unit Q8HR [facility] Administration Hydralazine HCl 10 mg 01/13/19 09:46 01/15/19 02:49 Apresoline IV 10 mg Q4HR PRN Administration Hypertension Cefepime HCl 2 gm in 100 mls @ 200 mls/hr 01/15/19 22:00 01/16/19 12:30 Maxipime/Ns 2 Gm/100 Ml IV 200 mls/hr Q12HR [facility] Administration Protocol Vancomycin HCl 750 mg/ Sodium 265 mls @ 166.667 mls/hr 01/16/19 18:00 Chloride IV Q24HR@1800 [facility] Metronidazole 500 mg in 100 mls @ 100 mls/hr 01/16/19 14:00 01/16/19 13:37 Flagyl 500 Mg/100 Ml IV 100 mls/hr Q8HR [facility] Administration Protocol Lisinopril 40 mg 01/13/19 10:00 01/16/19 12:29 Zestril PO 40 mg QDAY [facility] Administration Loratadine 10 mg 01/14/19 10:00 01/16/19 12:29 Claritin PO 10 mg DAILY [facility] Administration Oxycodone/Acetaminophen 1 tab 01/15/19 23:56 01/16/19 00:14 Percocet 5/325 PO 1 tab Q6H PRN Administration Pain, Moderate (4-6) Tamsulosin HCl 0.4 mg 01/11/19 10:00 01/16/19 12:29 Flomax PO 0.4 mg QDAY [facility] Administration Nutrition/Malnutrition Assess - Dietary Evaluation Nutrition/Malnutrition Findings: Nutrition Notes Start: 01/11/19 16:09 Freq: Status: Active Protocol: Document 01/12/19 15:46 RM (Rec: 01/12/19 15:51 RM [id number]) Nutrition Notes Initial or Follow up Assessment Current Diagnosis Sepsis,Hypertension Other Pertinent Diagnosis Pyelonephritis, Nephrolithiasis Current Diet Regular Labs/Tests Reviewed Pertinent Medications Reviewed Height 5 ft 2 in Weight 55 kg Usual Body Weight 57.27 kg [place] Body Weight (kg) 50.00 BMI 22.1 Weight change and time frame 4% wt loss X 4 months. Subjective/Other Information Pt and pt daughter in room. Pt does not speak turkmen so daughter acted as interpreter translator or spoke on behalf of pt. Pt daughter stated that [employer] pt appetite was poor and that she ate 3 small meals daily. Stated pt appetite is poor now and that she does not like the facility meals because she is used to [place] food. Noted lunched at bedside w/ only fruit and green peas from chicken pot pie eaten. Stated UBW was 126 lbs 4 months ago. No temporal or orbital wasting . Burn Absent Trauma Absent #1 Nutrition Diagnosis Inadequate oral intake Etiology food preferences As Evidenced by Signs and Symptoms lunch at bedside w/only fruit and green peas eaten Is patient on ventilator? No Is Patient Ambulatory and/or Out of Bed No REE-([facility]-confined to bed) 1151.304 Kcal/Kg value to use for calculation 25 Approximate Energy Requirements Using 1375 kcal/Kg Calculation Used for Recommendations [facility] Additional Notes Protein Needs: 83-94g (1-1.2g/ kg) Fluid Needs: 1 ml/kcal Nutrition Intervention Change Diet Order: Continue current Add Supplement/Snack (indicate name/kcal Ensure Enlive Chocolate 1 /protein ) daily Provides kCal: 350 Provides Protein (gm) 20 Goal #1 Meet at least 75% of calorie and protein needs via PO and ONS intakes Follow-Up By: 01/16/19 Additional Comments Follow for PO and ONS intakes
[2019-01-16] MEDS: VANCOMYCIN 750 MG in NACL 0.9% 250ML 250 ML IV SCH (17:12)
[2019-01-16] MEDS ORDERED: POTASSIUM CHLORIDE FEEDTUBE SCH (18:00)
[2019-01-17] MEDS: FLAGYL 500 MG/100 ML 500 MG/100 ML BAG IV SCH ×3 (06:21→22:29)
[2019-01-17] MEDS: TESSALON PERLES PO SCH ×3 (06:21→22:49)
[2019-01-17] MEDS: HEPARIN SUB-Q SCH ×3 (06:21→22:49)
[2019-01-17] MEDS: LASIX IV SCH (06:21)
--- NOTE | 2019-01-17 07:54 | Progress Note ---
Assessment and Plan Cultures: Blood culture 01/11/2019 no growth so far. Urine culture 01/11/2019 Klebsiella 10-100k Pleural fluid culture 01/16/19: in progress Assessment: 83 y/o male with history of hypertension, recurrent kidney stones and chronic back pain admitted on 01/11/2019 due to a week-history of worsening back pain R>L associated with some dysuria, generalized weakness and 24 hour-history of fever and chills: 1) Severe Sepsis: Continuing. Leukocytosis trending down. Still tachycardia. Etiology likely complicated UTI +/- pneumonia. 2) Complicated UTI with ureteral stone: UA 63 wbc, mod LE, +nitrates. Lumbar CT showed Nephrolithiasis. Mild right hydronephrosis is suspected but partially imaged. Correlate for distal right ureteral stone. S/p OR for cystoscopy RPGS and right stent placement on 01/11/2019. Urine culture 01/11/2019 Klebsiella 10- 100k. 3) Complicated RUL/RML pneumonia with moderate pleural effusion: initial CXR showed a mild RML infiltrate which became worse. Patient noted with SOB and tachycardia. Repeat CXR showed worsening right pneumonia. CT chest showed moderate patchy peribronchial infiltrate throughout the right upper lobe and right middle lobe and moderate bilateral pleural effusion. DDX Aspiration pneumonia, HAP. ?pleural effusion parapneumonic v/s heart failure. S/p right thoracentesis on 01/16/19 . spontaneous return of 1400 cc fluid aspirated. ?transudate vs exudate, transudate from volume overload ?heart failure. Exudate from infections parapneumonic? Pleural fluid was yellow, hazy, wbc 380, rbc 221, seg 80, lymphocytes 7.0, monocytes 13. Glucose and LDH pending. Pleural fluid culture in progress. TTE no valvular vegetation, EF 45-50%. Recommendations: -continue vancomycin with PK consult, D3 -continue Cefepime 2 gms IV BID, D3 -continue Flagyl 500mg IV every 8 hours, D2 -Clinacally stable, Bronchoscopy not recommended at this time [facility] M: [id number] O:[phone] Subjective Date of service: 01/17/19 Interval history: Patient seen and examined. Laying in bed, awake. Generalized weakness. No fevers. Daughter at bedside. Objective - Exam Narrative Exam: General appearance: Alert . Awake. Generalized weakness. Eyes: anicteric sclerae, moist conjunctivae; no lid-lag; PERRLA HENT: Atraumatic; oropharynx clear edentulous Neck: Trachea midline; supple, no thyromegaly or lymphadenopathy Lungs: RUL crackles CV: tachycardia Abdomen: Soft, non-tender; no masses or hepatosplenomegaly Extremities: no edema Skin: Normal temperature, turgor and texture; no rash, ulcers or subcutaneous nodules Psych: calm. Neuro: alert and oriented x 3. Moving all extermities - Constitutional Vitals: Vital Signs Temp Pulse Resp BP Pulse Ox 97.2 F L 114 H 18 172/99 96 01/17/19 02:04 01/17/19 02:04 01/17/19 02:04 01/17/19 02:04 01/17/19 02:04 Temperature -Last 24 Hours Temperature 97.2 F Temperature 98.1 F Temperature 99.3 F Temperature 98.7 F - Labs CBC & Chem 7: 01/17/19 07:04 01/17/19 07:04 Labs: Abnormal lab results 01/16/19 Range/Units 05:41 C-Reactive Protein 19.60 H (0.00-1.30) mg/dL
[2019-01-17 08:28] LABS: Hematocrit 34.7 % (30.3-42.9); Hemoglobin 11.4 gm/dl (10.1-14.3); Mean Corpuscular HGB Conc 33 % (30-34); Mean Corpuscular Volume 85 fl (79-97); Platelet Count 431 K/mm3 (140-440); Red Blood Count 4.09 M/mm3 (3.65-5.03); Red Cell Distribution Width 16.8 % (13.2-15.2)
[2019-01-17 08:57] LABS: BUN/Creatinine Ratio 28; Blood Urea Nitrogen 11 mg/dL (7-17); Calcium 8.6 mg/dL (8.4-10.2); Hemolysis Index 0
--- NOTE | 2019-01-17 09:29 | Progress Note ---
Assessment and Plan Assessment and plan: Patient is 83-year-old female with hypertension, recurrent kidney stones last time was in 1999, chronic back pain. She presented to the ED accompanied by her with complaints of worsening back pain. She relates that 10 over 10 intensity located more to the left flank area at this time. The patient reports that she has chronic pain for 19 years but this is worse. She also complained of chills but no associated nausea vomiting and no recent trauma to her back. She denies any numbness or tingling at this time. She does complain of dysuria with occasional cough but no shortness of breath documented. CTAP: IMPRESSION: Osteopenia. Degenerative changes. No acute injury is identified in the lumbar spine. Nephrolithiasis. Mild right hydronephrosis is suspected but partially imaged. Correlate for distal right ureteral stone. CXR: IMPRESSION: Shows worsening infiltrates S/P cysto, rpgs, rt stent (6x 22cm) by urology 01/11/19 Assessment Sepsis secondary to pyelonephritis Acute Respiratory failure ?Worsening PNA, and or volume overload Acute pyelonephritis secondary to nephrolithiasis Nephrolithiasis with mild right hydronephrosis Community acquired Pneumonia-worse per imaging, but not clinically Severe protein calorie malnutrition Hypokalemia Hyponatremia Hypocalcemia Dehydration Hypertension-UNCONTROLLED chronic low back pain Right pleural effusion s/p right thoracentesis 01/16/19 Plan Continue abx, and supportive care * Patient is currently on Levaquin and a macrolide * She was noted to have sinus tachycardia requiring initiation of her home dose Atenolol with improvement * Echo is ordered to further evaluate * Blood culture is with no growth but urine culture shows K.Pneumonia * Potassium replacement is ongoing and awaiting repeat labs. Magnesium is pending * Patient had a cystoscopy done as noted above and will need to follow with Urology for removal * Aspiration precaution * PT/OT eval and treat. new information shows that patient is able to ambulate with assistance Replace Electrolytes as needed DVT and GI prophylaxis plan discussed with patient and daughter at bedside. Poss dc in 1-2 days History Interval history: s/p right thoracentesis 01/16/19 gen weakness Hospitalist Physical - Physical exam Narrative exam: Gen: Not in acute distress, lying in bed, HEENT: Normocephalic, atraumatic Neck: supple, no JVD Heart: S1 and S2 reg, no murmurs, rubs or gallop Lungs: Clear, no crackles, no wheeze Abd: soft, non tender, non distended, normal BS Ext: No edema, no clubbing, no cyanosis, Neuro: Lethargic, moves all ext, non focal Psych:Normal mood - Constitutional Vitals: Temp Pulse Resp BP Pulse Ox 97.7 F 92 H 18 150/77 93 01/17/19 08:02 01/17/19 08:02 01/17/19 08:02 01/17/19 08:02 01/17/19 08:02 Results - Labs CBC & Chem 7: 01/17/19 07:04 01/17/19 07:04 Labs: Laboratory Last Values WBC 10.5 K/mm3 (4.5-11.0) 01/17/19 07:04 RBC 4.09 M/mm3 (3.65-5.03) 01/17/19 07:04 Hgb 11.4 gm/dl (10.1-14.3) 01/17/19 07:04 Hct 34.7 % (30.3-42.9) 01/17/19 07:04 MCV 85 fl (79-97) 01/17/19 07:04 MCH 28 pg (28-32) 01/17/19 07:04 MCHC 33 % (30-34) 01/17/19 07:04 RDW 16.8 % (13.2-15.2) H 01/17/19 07:04 Plt Count 431 K/mm3 (140-440) 01/17/19 07:04 Lymph % (Auto) 7.3 % (13.4-35.0) L 01/12/19 11:05 [place] % (Auto) 5.4 % (0.0-7.3) 01/12/19 11:05 Eos % (Auto) 0.0 % (0.0-4.3) 01/12/19 11:05 Baso % (Auto) 0.1 % (0.0-1.8) 01/12/19 11:05 Lymph # 1.1 K/mm3 (1.2-5.4) L 01/12/19 11:05 [place] # 0.9 K/mm3 (0.0-0.8) H 01/12/19 11:05 Eos # 0.0 K/mm3 (0.0-0.4) 01/12/19 11:05 Baso # 0.0 K/mm3 (0.0-0.1) 01/12/19 11:05 Seg Neutrophils % 87.2 % (40.0-70.0) H 01/12/19 11:05 Seg Neutrophils # 13.7 K/mm3 (1.8-7.7) H 01/12/19 11:05 PT 14.9 Sec. (12.2-14.9) 01/15/19 18:34 INR 1.10 (0.87-1.13) 01/15/19 18:34 APTT 41.7 Sec. (24.2-36.6) H 01/15/19 18:34 Sodium 141 mmol/L (137-145) 01/17/19 07:04 Potassium 3.8 mmol/L (3.6-5.0) 01/17/19 07:04 Chloride 98.6 mmol/L (98-107) 01/17/19 07:04 Carbon Dioxide 28 mmol/L (22-30) 01/17/19 07:04 18 mmol/L 01/17/19 07:04 BUN 11 mg/dL (7-17) 01/17/19 07:04 0.4 mg/dL (0.7-1.2) L 01/17/19 07:04 Estimated GFR > 60 ml/min 01/17/19 07:04 28 % 01/17/19 07:04 Glucose 99 mg/dL (65-100) 01/17/19 07:04 POC Glucose 103 (70-105) 01/12/19 22:35 Lactic Acid 2.00 mmol/L (0.7-2.0) 01/11/19 04:56 Calcium 8.6 mg/dL (8.4-10.2) 01/17/19 07:04 Magnesium 1.70 mg/dL (1.7-2.3) 01/15/19 07:16 0.60 mg/dL (0.1-1.2) 01/11/19 04:56 AST 19 units/L (5-40) 01/11/19 04:56 ALT 17 units/L (7-56) 01/11/19 04:56 63 units/L (35-129) 01/11/19 04:56 25 units/L (30-135) L 01/11/19 04:56 19.60 mg/dL (0.00-1.30) H 01/16/19 05:41 6.8 g/dL (6.3-8.2) 01/11/19 04:56 2.9 g/dL (3.9-5) L 01/11/19 04:56 0.7 % 01/11/19 04:56 Yellow (Yellow) 01/11/19 04:00 Slightly-cloudy (Clear) 01/11/19 04:00 6.0 (5.0-7.0) 01/11/19 04:00 Ur Specific [place] 1.012 (1.003-1.030) 01/11/19 04:00 100 mg/dl mg/dL (Negative) 01/11/19 04:00 150 mg/dL (Negative) 01/11/19 04:00 Neg mg/dL (Negative) 01/11/19 04:00 Mod (Negative) 01/11/19 04:00 Pos (Negative) 01/11/19 04:00 Neg (Negative) 01/11/19 04:00 < 2.0 mg/dL (<2.0) 01/11/19 04:00 Ur Leukocyte Esterase Mod (Negative) 01/11/19 04:00 63.0 /HPF (0.0-6.0) H 01/11/19 04:00 41.0 /HPF (0.0-6.0) 01/11/19 04:00 U Epithel Cells (Auto) 3.0 /HPF (0-13.0) 01/11/19 04:00 4+ /HPF (Negative) 01/11/19 04:00 Hyaline Casts 3 /LPF 01/11/19 04:00 Few /HPF 01/11/19 04:00 Fluid Type Pleural 01/16/19 10:48 Fluid Color Yellow 01/16/19 10:48 Fluid Appearance Hazy 01/16/19 10:48 Fluid WBC 380 /mm3 01/16/19 10:48 Fluid RBC 221 /mm3 01/16/19 10:48 Fluid Seg Neutrophils 80.0 % 01/16/19 10:48 Fluid Lymphocytes 7.0 % 01/16/19 10:48 Fluid Monocytes 13.0 % 01/16/19 10:48 Blood Type A POSITIVE 01/11/19 04:56 Antibody Screen Negative 01/11/19 04:56 Active Medications - Current Medications Current Medications: Generic Name Dose Route Start Last Admin Trade Name Freq PRN Reason Stop Dose Admin Acetaminophen 650 mg 01/15/19 23:56 Tylenol PO Q6H PRN Pain, Mild (1-3) Albuterol 2.5 mg 01/14/19 07:50 01/15/19 20:30 Proventil IH 2.5 mg Q4HRT PRN Administration Shortness Of Breath Atenolol 25 mg 01/15/19 10:00 01/16/19 12:29 Tenormin PO 25 mg QDAY ROSE Administration Benzonatate 200 mg 01/15/19 14:00 01/17/19 06:21 Tessalon Perles PO 200 mg Q8HR ROSE Administration Clopidogrel Bisulfate 75 mg 01/14/19 10:00 01/16/19 12:28 Plavix PO 75 mg QDAY ROSE Administration Fenofibrate 145 mg 01/14/19 10:00 01/16/19 12:29 Tricor PO 145 mg DAILY ROSE Administration Furosemide 40 mg 01/15/19 15:00 01/17/19 06:21 Lasix IV 40 mg DAILY@0600 ROSE Administration Heparin Sodium (Porcine) 5,000 unit 01/11/19 14:00 01/17/19 06:21 Heparin SUB-Q 5,000 unit Q8HR ROSE Administration Hydralazine HCl 10 mg 01/13/19 09:46 01/15/19 02:49 Apresoline IV 10 mg Q4HR PRN Administration Hypertension Cefepime HCl 2 gm in 100 mls @ 200 mls/hr 01/15/19 22:00 01/16/19 21:50 Maxipime/Ns 2 Gm/100 Ml IV 200 mls/hr Q12HR ROSE Administration Protocol Vancomycin HCl 750 mg/ Sodium 265 mls @ 166.667 mls/hr 01/16/19 18:00 01/16/19 17:12 Chloride IV 166.667 mls/hr Q24HR@1800 ROSE Administration Metronidazole 500 mg in 100 mls @ 100 mls/hr 01/16/19 14:00 01/17/19 06:21 Flagyl 500 Mg/100 Ml IV 100 mls/hr Q8HR ROSE Administration Protocol Lisinopril 40 mg 01/13/19 10:00 01/16/19 12:29 Zestril PO 40 mg QDAY ROSE Administration Loratadine 10 mg 01/14/19 10:00 01/16/19 12:29 Claritin PO 10 mg DAILY ROSE Administration Oxycodone/Acetaminophen 1 tab 01/15/19 23:56 01/16/19 00:14 Percocet 5/325 PO 1 tab Q6H PRN Administration Pain, Moderate (4-6) Tamsulosin HCl 0.4 mg 01/11/19 10:00 01/16/19 12:29 Flomax PO 0.4 mg QDAY ROSE Administration Nutrition/Malnutrition Assess - Dietary Evaluation Nutrition/Malnutrition Findings: Nutrition Notes Start: 01/11/19 16:09 Freq: Status: Active Protocol: Document 01/16/19 16:40 RM (Rec: 01/16/19 16:43 RM [id number]) Nutrition Notes Initial or Follow up Reassessment Current Diagnosis Sepsis,Hypertension Other Pertinent Diagnosis Pyelonephritis, Nephrolithiasis Current Diet Regular w/Ensure Enlive Chocolate 1 daily Labs/Tests Reviewed Pertinent Medications Reviewed Height 5 ft 2 in Weight 55 kg [place] Neck Body Weight (kg) 50.00 BMI 22.1 Subjective/Other Information Pt and pt daughter in room at time of visit. Pt daughter spoke on behalf of pt. Stated that pt sometimes eats half of the facility meals and also eats rice soup she brings in. Stated that pt vomited after drinking Ensure. Burn Absent Trauma Absent #1 Nutrition Diagnosis Inadequate oral intake As Evidenced by Signs and Symptoms pt daughter statement that pt sometimes eats half of facility meals and eats the rice soup she brings in Diagnosis Progress(for reassessment Improved documentation) Is patient on ventilator? No Is Patient Ambulatory and/or Out of Bed No REE-([facility] [place]-confined to bed) 1151.304 Kcal/Kg value to use for calculation 25 Approximate Energy Requirements Using 1375 kcal/Kg Calculation Used for Recommendations [facility] Additional Notes Protein Needs: 83-94g (1-1.2g/ kg) Fluid Needs: 1 ml/kcal Nutrition Intervention Change Diet Order: Continue current Add Supplement/Snack (indicate name/kcal D/C Ensure Enlive Chocolate. /protein ) Add Ensure Clear 1 daily. Provides kCal: 240 Provides Protein (gm) 8 Goal #1 Meet at least 75% of calorie and protein needs via PO and ONS intakes Follow-Up By: 01/23/19 Additional Comments Follow for PO and ONS intakes
[2019-01-17] MEDS: MAXIPIME/NS 2 GM/100 ML 2 GM/100 ML BAG IV SCH ×3 (10:26→22:42)
[2019-01-17] MEDS: ZESTRIL PO SCH (10:27)
[2019-01-17] MEDS: PLAVIX PO SCH (10:27)
[2019-01-17] MEDS: CLARITIN PO SCH (10:27)
[2019-01-17] MEDS: TRICOR PO SCH (10:27)
[2019-01-17] MEDS: TENORMIN PO SCH (10:28)
[2019-01-17] MEDS: FLOMAX PO SCH (10:28)
--- NOTE | 2019-01-17 16:50 | Progress Note ---
Assessment and Plan 83 y/o with bilateral pleural effusions, right upper lobe pneumonia that appears to be worsening. 1. 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 2. If PFA does not given any answers, bronch is not unreasonable. Will check the schedule for and Tuesday 3. Appreciate ID help, follow their recs in regards to abx therapy. Will continue to follow along with you. Subjective Date of service: 01/17/19 Interval history: No acute events. WBC improving Objective Vital Signs - 12hr 01/17/19 01/17/19 01/17/19 08:02 10:00 10:27 Temperature 97.7 F Pulse Rate 92 H 80 92 H Respiratory 18 Rate Blood Pressure 150/77 150/77 O2 Sat by Pulse 93 Oximetry 01/17/19 01/17/19 13:16 15:44 Temperature 97.7 F Pulse Rate 81 Respiratory 18 Rate Blood Pressure 136/75 O2 Sat by Pulse 97 97 Oximetry CBC and BMP: 01/17/19 07:04 01/17/19 07:04 ABG, PT/INR, D-dimer: PT/INR, D-dimer PT 14.9 Sec. (12.2-14.9) 01/15/19 18:34 INR 1.10 (0.87-1.13) 01/15/19 18:34 Abnormal lab findings: Abnormal Labs 01/11/19 01/11/19 01/11/19 04:00 04:56 04:56 WBC 17.6 H RBC Hgb Hct RDW 16.2 H Lymph % (Auto) 4.5 L Lymph # 0.8 L [place] # 1.2 H Seg Neutrophils % 88.0 H Seg Neutrophils # 15.5 H APTT Sodium 134 L Potassium 3.3 L Chloride 97.6 L BUN Creatinine 0.4 L Glucose 105 H Calcium 8.2 L Total Creatine Kinase 25 L C-Reactive Protein Albumin 2.9 L Urine WBC (Auto) 63.0 H 01/12/19 01/12/19 01/13/19 11:05 11:05 04:23 WBC 15.7 H 16.7 H RBC Hgb Hct RDW 16.5 H 16.3 H Lymph % (Auto) 7.3 L Lymph # 1.1 L [place] # 0.9 H Seg Neutrophils % 87.2 H Seg Neutrophils # 13.7 H APTT Sodium Potassium Chloride BUN Creatinine 0.5 L Glucose 161 H Calcium 8.2 L Total Creatine Kinase C-Reactive Protein Albumin Urine WBC (Auto) 01/14/19 01/14/19 01/15/19 04:14 04:14 07:16 WBC 14.3 H 13.5 H RBC 3.57 L 3.54 L Hgb 9.9 L Hct 29.4 L RDW 16.6 H 16.5 H Lymph % (Auto) Lymph # [place] # Seg Neutrophils % Seg Neutrophils # APTT Sodium 133 L Potassium 2.7 L* D Chloride 94.6 L BUN 5 L Creatinine 0.3 L Glucose 138 H Calcium 8.0 L Total Creatine Kinase C-Reactive Protein Albumin Urine WBC (Auto) 01/15/19 01/15/19 01/16/19 07:16 18:34 05:41 WBC 12.5 H RBC Hgb Hct RDW 16.4 H Lymph % (Auto) Lymph # [place] # Seg Neutrophils % Seg Neutrophils # APTT 41.7 H Sodium 134 L Potassium 2.8 L* Chloride 96.0 L BUN 5 L Creatinine 0.3 L Glucose 135 H Calcium 7.6 L Total Creatine Kinase C-Reactive Protein Albumin Urine WBC (Auto) 01/16/19 01/16/19 01/17/19 05:41 05:41 07:04 WBC RBC Hgb Hct RDW 16.8 H Lymph % (Auto) Lymph # [place] # Seg Neutrophils % Seg Neutrophils # APTT Sodium Potassium 3.3 L D Chloride BUN Creatinine 0.4 L Glucose Calcium 8.1 L Total Creatine Kinase C-Reactive Protein 19.60 H Albumin Urine WBC (Auto) 01/17/19 07:04 WBC RBC Hgb Hct RDW Lymph % (Auto) Lymph # [place] # Seg Neutrophils % Seg Neutrophils # APTT Sodium Potassium Chloride BUN Creatinine 0.4 L Glucose Calcium Total Creatine Kinase C-Reactive Protein Albumin Urine WBC (Auto)
[2019-01-17] MEDS: VANCOMYCIN 750 MG in NACL 0.9% 250ML 250 ML IV SCH (18:36)
[2019-01-18] MEDS: FLAGYL 500 MG/100 ML 500 MG/100 ML BAG IV SCH ×2 (07:55→14:24)
[2019-01-18] MEDS: LASIX IV SCH (07:59)
[2019-01-18] MEDS: TESSALON PERLES PO SCH ×2 (08:00→14:23)
[2019-01-18] MEDS: HEPARIN SUB-Q SCH ×2 (08:02→14:25)
--- NOTE | 2019-01-18 09:08 | Progress Note ---
Assessment and Plan Cultures: Blood culture 01/11/2019 no growth so far. Urine culture 01/11/2019 Klebsiella 10-100k Assessment: 83 y/o male with history of hypertension, recurrent kidney stones and chronic back pain admitted on 01/11/2019 due to a week-history of worsening back pain R>L associated with some dysuria, generalized weakness and 24 hour-history of fever and chills: 1) Severe Sepsis: Present on admission, manifested by fever, tachycardia, leukocytosis. Etiology likely complicated UTI +/- pneumonia. 2) Complicated UTI with ureteral stone: UA 63 wbc, mod LE, +nitrates. Lumbar CT showed Nephrolithiasis. Mild right hydronephrosis is suspected but partially imaged. Correlate for distal right ureteral stone. S/p OR for cystoscopy RPGS and right stent placement on 01/11/2019. Urine culture 01/11/2019 Klebsiella 10- 100k. 3) Complicated RUL/RML pneumonia with moderate pleural effusion: initial CXR showed a mild RML infiltrate which became worse. Patient noted with SOB and tachycardia. Repeat CXR showed worsening right pneumonia. CT chest showed moderate patchy peribronchial infiltrate throughout the right upper lobe and right middle lobe and moderate bilateral pleural effusion. DDX Aspiration pneumonia, HAP. ?pleural effusion parapneumonic v/s heart failure. TTE EF 45-50, mod TR. Recommendations: -continue vancomycin with PK consult, D4 of 10 -continue Cefepime 2 gms IV BID, D4 of 10 -continue Flagyl 500mg IV every 8 hours, D4 of 10 -if she is ready to be d/c home anticipate discharge on ceftin 500 mg PO BID and doxycycline 100 mg PO BID total 10 days until 01/24/2019 to cover UTI/pneumonia Will follow. Debbie Barrett MD Infectious Diseases [employer] [facility] M [phone] O [phone] Subjective Date of service: 01/18/19 Principal diagnosis: pneumonia Interval history: Patient is alert, feels better, still coughing, no fever, family at bedside ROS limited Objective - Exam Narrative Exam: General appearance: Alert in NAD pleasant Eyes: anicteric sclerae, moist conjunctivae; no lid-lag; PERRLA HENT: Atraumatic; oropharynx clear edentulous Neck: Trachea midline; supple, no thyromegaly or lymphadenopathy Lungs: RML crackles CV: rrr Abdomen: Soft, non-tender; no masses or hepatosplenomegaly Extremities: no edema Skin: Normal temperature, turgor and texture; no rash, ulcers or subcutaneous nodules Psych:no agitated. Neuro: alert and oriented x 3. Moving all extermities - Constitutional Vitals: Vital Signs Temp Pulse Resp BP Pulse Ox 98.8 F 91 H 18 157/82 95 01/18/19 02:37 01/18/19 02:37 01/18/19 02:37 01/18/19 02:37 01/18/19 08:22 Temperature -Last 24 Hours Temperature 98.8 F Temperature 97.4 F Temperature 97.4 F Temperature 97.7 F - Labs CBC & Chem 7: 01/17/19 07:04 01/17/19 07:04
[2019-01-18] MEDS: MAXIPIME/NS 2 GM/100 ML 2 GM/100 ML BAG IV SCH (10:40)
[2019-01-18] MEDS: TRICOR PO SCH (10:46)
[2019-01-18] MEDS: FLOMAX PO SCH (10:46)
[2019-01-18] MEDS: TENORMIN PO SCH (10:47)
[2019-01-18] MEDS: ZESTRIL PO SCH (10:47)
[2019-01-18] MEDS: CLARITIN PO SCH (10:47)
[2019-01-18] MEDS: PLAVIX PO SCH (10:47)
--- NOTE | 2019-01-18 13:06 | Discharge Summary ---
Providers - Providers Date of Admission: 01/11/19 07:43 Date of discharge: 01/18/19 Attending physician: DRISS ROBLERO 01/11/19 08:52 Consult to Dietitian/Nutrition [CONS] Routine Physician Instructions: Reason For Exam: Reason for Consult: Malnutrition 01/11/19 09:24 Consult to Physician [CONS] Routine Comment: mary foote called and spoke wit the nurse Consulting Provider: SARAH MAURO Physician Instructions: Reason For Exam: Nephrolithasis with mild hydronephrosis 01/15/19 09:18 Occupational Therapy Evaluate and Treat [CONS] Routine Comment: Reason For Exam: debilty Physical Therapy Evaluation and Treat [CONS] Routine Comment: Reason For Exam: debility 01/15/19 14:46 Consult to Physician [CONS] Routine Comment: called answ, serv. /otto Consulting Provider: ELA BROWN Physician Instructions: Reason For Exam: pneumonia 01/15/19 14:48 Consult to Physician [CONS] Routine Comment: called ans. serv./otto Consulting Provider: MUKESH JACKSON Physician Instructions: Reason For Exam: shortness of breath Primary care physician: [employer]ENT [employer] Hospitalization Condition: Fair Hospital course: Patient is 83-year-old female with hypertension, recurrent kidney stones last time was in 1999, chronic back pain. She presented to the ED accompanied by her with complaints of worsening back pain, 10/10 intensity located more to the left flank area at this time. The patient reports that she has chronic pain for 19 years but this is worse. She also complained of chills but no associated nausea vomiting and no recent trauma to her back. She also complained of dysuria. CT revealed stone with right hydronephrosis. She was seen by Urology and had s/p cysto, rpgs, rt stent (6x 22cm) by urology 01/11/19 Assessment Sepsis secondary to pyelonephritis Acute Respiratory failure ?Worsening PNA, and or volume overload Acute pyelonephritis secondary to nephrolithiasis Nephrolithiasis with mild right hydronephrosis Community acquired Pneumonia Severe protein calorie malnutrition Hypokalemia Hyponatremia Hypocalcemia Dehydration Hypertension-UNCONTROLLED chronic low back pain Right pleural effusion s/p right thoracentesis 01/16/19 Plan Continue abx, and supportive care * Patient is currently on Levaquin and a macrolide * She was noted to have sinus tachycardia requiring initiation of her home dose Atenolol with improvement * Blood culture is with no growth but urine culture shows K.Pneumonia * Potassium replaced * Patient had a cystoscopy done as noted above and will need to follow with Urology for removal * Aspiration precaution * PT/OT eval and treat. new information shows that patient is able to ambulate with assistance * * Total time spent on discharge, 37 mins Disposition: DC-01 TO HOME OR SELFCARE - Discharge Diagnoses (1) Hydronephrosis Status: Acute (2) Pyelonephritis Status: Acute (3) Pneumonia Status: Acute (4) Sepsis Status: Acute (5) HTN (hypertension) Status: Acute (6) Dehydration Status: Acute (7) Nephrolithiasis Status: Acute Core Measure Documentation - Palliative Care Palliative Care/ Comfort Measures: Not Applicable - Core Measures Any of the following diagnoses?: none Exam - Constitutional Vitals: Temp Pulse Resp BP Pulse Ox 98.0 F 80 18 151/76 95 01/18/19 07:42 01/18/19 10:47 01/18/19 07:42 01/18/19 10:47 01/18/19 08:22 Plan Activity: advance as tolerated Diet: regular Additional Instructions: 1.Follow up with PCP in 1 week. 2.Follow up with Evelio Bellamy in 1 week. 3.Follow up with Dr. Mauro, Urology in 1 week Follow up with: PRIMARY CAREMD [Primary Care Provider] - 3-5 Days Prescriptions: cefUROXime [Ceftin] 500 mg PO Q12H 7 Days tablet Doxycycline Monohydrate 100 mg PO BID 7 Days capsule Lisinopril [Zestril TAB] 40 mg PO QDAY #30 tablet
[2019-01-18 15:02] VITALS: BP 127/67
--- NOTE | 2019-01-18 15:13 | Progress Note ---
Assessment and Plan 83 y/o with bilateral pleural effusions, right upper lobe pneumonia that appears to be worsening. 1. If possible needs walk test. If not able to do, room air abg to determine oxygen needs. 2. Given improvement with abx therapy, no need for bronch at this time. 3. Follow ID recs for abx therapy. Will continue to follow along with you. Subjective Date of service: 01/18/19 Principal diagnosis: pneumonia Interval history: Patient being discharged today on PO abx. Sat was 95 on 2 liters today. Objective Vital Signs - 12hr 01/18/19 01/18/19 01/18/19 07:42 08:22 10:47 Temperature 98.0 F Pulse Rate 80 80 Respiratory 18 Rate Blood Pressure 151/76 151/76 O2 Sat by Pulse 95 95 Oximetry 01/18/19 13:22 Temperature 98.3 F Pulse Rate 79 Respiratory 20 Rate Blood Pressure 127/67 O2 Sat by Pulse 98 Oximetry CBC and BMP: 01/17/19 07:04 01/17/19 07:04 ABG, PT/INR, D-dimer: PT/INR, D-dimer PT 14.9 Sec. (12.2-14.9) 01/15/19 18:34 INR 1.10 (0.87-1.13) 01/15/19 18:34 Abnormal lab findings: Abnormal Labs 01/11/19 01/11/19 01/11/19 04:00 04:56 04:56 WBC 17.6 H RBC Hgb Hct RDW 16.2 H Lymph % (Auto) 4.5 L Lymph # 0.8 L Scott # 1.2 H Seg Neutrophils % 88.0 H Seg Neutrophils # 15.5 H APTT Sodium 134 L Potassium 3.3 L Chloride 97.6 L BUN Creatinine 0.4 L Glucose 105 H Calcium 8.2 L Total Creatine Kinase 25 L C-Reactive Protein Albumin 2.9 L Urine WBC (Auto) 63.0 H 01/12/19 01/12/19 01/13/19 11:05 11:05 04:23 WBC 15.7 H 16.7 H RBC Hgb Hct RDW 16.5 H 16.3 H Lymph % (Auto) 7.3 L Lymph # 1.1 L Scott # 0.9 H Seg Neutrophils % 87.2 H Seg Neutrophils # 13.7 H APTT Sodium Potassium Chloride BUN Creatinine 0.5 L Glucose 161 H Calcium 8.2 L Total Creatine Kinase C-Reactive Protein Albumin Urine WBC (Auto) 01/14/19 01/14/19 01/15/19 04:14 04:14 07:16 WBC 14.3 H 13.5 H RBC 3.57 L 3.54 L Hgb 9.9 L Hct 29.4 L RDW 16.6 H 16.5 H Lymph % (Auto) Lymph # Scott # Seg Neutrophils % Seg Neutrophils # APTT Sodium 133 L Potassium 2.7 L* D Chloride 94.6 L BUN 5 L Creatinine 0.3 L Glucose 138 H Calcium 8.0 L Total Creatine Kinase C-Reactive Protein Albumin Urine WBC (Auto) 01/15/19 01/15/19 01/16/19 07:16 18:34 05:41 WBC 12.5 H RBC Hgb Hct RDW 16.4 H Lymph % (Auto) Lymph # Scott # Seg Neutrophils % Seg Neutrophils # APTT 41.7 H Sodium 134 L Potassium 2.8 L* Chloride 96.0 L BUN 5 L Creatinine 0.3 L Glucose 135 H Calcium 7.6 L Total Creatine Kinase C-Reactive Protein Albumin Urine WBC (Auto) 01/16/19 01/16/19 01/17/19 05:41 05:41 07:04 WBC RBC Hgb Hct RDW 16.8 H Lymph % (Auto) Lymph # Scott # Seg Neutrophils % Seg Neutrophils # APTT Sodium Potassium 3.3 L D Chloride BUN Creatinine 0.4 L Glucose Calcium 8.1 L Total Creatine Kinase C-Reactive Protein 19.60 H Albumin Urine WBC (Auto) 01/17/19 07:04 WBC RBC Hgb Hct RDW Lymph % (Auto) Lymph # Scott # Seg Neutrophils % Seg Neutrophils # APTT Sodium Potassium Chloride BUN Creatinine 0.4 L Glucose Calcium Total Creatine Kinase C-Reactive Protein Albumin Urine WBC (Auto)
[2019-01-22 09:04] LABS: LDH,Body Fluid 77
== END 2019-01-18 16:30 | disposition home or self-care (01) | DRG 853 ==
LOC: ED 03:39 → 2B-ACE 07:43
PROVIDERS: ADMIT Internal Medicine; ATTEND Internal Medicine
PROC: 0T768DZ Dilation of Right Ureter with Intraluminal Device, Via Natural or Artificial Opening Endoscopic (ICD-10-PCS; 2019-01-11)
PROC: BT141ZZ Fluoroscopy of Kidneys, Ureters and Bladder using Low Osmolar Contrast (ICD-10-PCS; 2019-01-11)
PROC: 0W993ZZ Drainage of Right Pleural Cavity, Percutaneous Approach (ICD-10-PCS; principal; 2019-01-16)
DX: A41.9 Sepsis, unspecified organism (principal); E43 Unspecified severe protein-calorie malnutrition; J18.1 Lobar pneumonia, unspecified organism; E87.1 Hypo-osmolality and hyponatremia; N13.6 Pyonephrosis; G89.29 Other chronic pain; E87.6 Hypokalemia; E83.51 Hypocalcemia; E86.0 Dehydration; M19.90 Unspecified osteoarthritis, unspecified site; M54.5 Low back pain; Z87.442 Personal history of urinary calculi; I11.0 Hypertensive heart disease with heart failure; R65.20 Severe sepsis without septic shock; I50.9 Heart failure, unspecified
CPT/HCPCS: 32555; 36415; 71045; 71250; 72131; 74420; 80048; 80053; 81003; 81015; 82140; 82550; 82947; 82962; 83605; 83735; 84132; 85025; 85027; 85610; 85730; 86140; 86850; 86900; 86901; 87040; 87086; 87116; 87186; 88112; 88305; 89051; 93005; 93010; 93306; 94640; 94760; G0378; C1729; C1758; C1769; C2617; J0360; J0456; J0692; J0696; J1100; J1644; J1940; J1956; J2405; J2704; J3010; J3370; J3475; J3480; J7030; J7050; Q9967

== ENCOUNTER 2019-02-15 14:45 | Outpatient (CLI) | payer MEDICARE ==
--- NOTE | 2019-02-15 16:13 | Cat Scan Report ---
PROCEDURE: CT ABDOMEN PELVIS WO CON HISTORY: CALCULUS OF KIDNEY FINDINGS: Unenhanced CT of the abdomen and pelvis was performed and data was reformatted in the sagit lowell and coronal planes. There is coronary artery calcification. There is left lower lobe linear atelectasis. There is a small pleural effusion. The ascending thoracic aorta is mildly dilated at 3.7 cm. ABDOMEN: No suspect focal hepatic lesion is seen. The spleen is normal in size. The adrenal glands are within normal limits. No focal pancreatic lesion is seen. The gallbladder is unremarkable. There is a right ureteral stent. There is moderate right hydronephrosis despite the presence of the s tent. There are some stranding around the right ureter which may represent ureteritis. There are left nonobstructing renal calculi. No left-sided hydronephrosis is seen. There is aortic atherosclerotic change without aneurysmal dilation of the aorta. Pelvis: There is a stone at the right ureterovesical junction adjacent to the stent, axial image 151, coronal images 81-82, approximately 0.5 cm. There is a normal appendix. There is no evidence of diverticulitis. There is no adnexal mass. The tommy jocelin and urinary bladder are within normal limits. There is no free air. IMPRESSION: ABDOMEN: Moderate right hydronephrosis. There is a right ureteral stent. There is stranding around th e right ureter which could represent ureteritis Pelvis: 0.5 cm stone at right ureterovesical junction adjacent to the stent This document is electronically signed by Chapin Mack MD., February 15 2019 04:12:05 PM ET
== END 2019-02-15 14:46 | disposition home or self-care (01) ==
LOC: CT 14:45
PROVIDERS: ATTEND Urology
DX: N13.30 Unspecified hydronephrosis (principal); I10 Essential (primary) hypertension
CPT/HCPCS: 74176

== ENCOUNTER 2019-03-14 10:29 | Day surgery (SDC) | payer MEDICARE ==
[~2019-03-14 10:29] MED LIST: ANCEF/STERILE WATER 2 GM/20 ML IV NR
[2019-03-14] MEDS ORDERED: ZOFRAN IV PRN (12:21)
--- NOTE | 2019-03-14 12:31 | Anesthesia Consultation ---
Anesthesia Consult and Med Hx Date of service: 03/14/19 - Airway Anesthetic Teeth Evaluation: Poor, Chipped ROM Head & Neck: Adequate Mental/Hyoid Distance: Adequate Mallampati Class: Class III Intubation Access Assessment: Probably Good - Pre-Operative Health Status ASA Pre-Surgery Classification: ASA3 Proposed Anesthetic Plan: General - Pulmonary Hx Smoking: No Hx Asthma: No SOB: Yes (SOB; pleural effusion and thoracentesis December 2018) COPD: No Hx Pneumonia: Yes Hx Sleep Apnea: No (ANISHA PRE SCREEN LOW RISK.) - Cardiovascular System Hx Hypertension: Yes (ECHO EF 45-50%) Hx Coronary Artery Disease: No (Negative NST; + Cardiac clearance ) - Central Nervous System Hx Seizures: No Hx Back Pain: Yes (CHRONIC) Hx Psychiatric Problems: No - Endocrine Hx Renal Disease: Yes (Stone) Hx Liver Disease: Yes - Hematic Hx Sickle Cell Disease: No - Other Systems Hx Cancer: No - Additional Comments Anesthesia Medical History Comments: Does not speak Zambian. Daughter present to translate
--- NOTE | 2019-03-14 12:40 | Anesthesia Day of Surgery ---
Anesthesia Day of Surgery - Day of Surgery Patient Examined: Yes Patient H&P Reviewed: Yes Patient is NPO: Yes Beta Blockers: Yes
[2019-03-14 12:45] LABS: BUN/Creatinine Ratio 30; Blood Urea Nitrogen 9 mg/dL (7-17); Calcium 8.8 mg/dL (8.4-10.2); Hemolysis Index 8
[2019-03-14 12:50] LABS: Hematocrit 31.6 % (30.3-42.9); Hemoglobin 10.2 gm/dl (10.1-14.3); Mean Corpuscular HGB Conc 32 % (30-34); Mean Corpuscular Volume 81 fl (79-97); Red Blood Count 3.88 M/mm3 (3.65-5.03)
[2019-03-14 12:51] LABS: Basophils # (Auto) 0.1 K/mm3 (0.0-0.1); Basophils % (Auto) 0.5 % (0.0-1.8); Eosinophils # (Auto) 0.1 K/mm3 (0.0-0.4); Eosinophils % (Auto) 1.1 % (0.0-4.3); Lymphocytes # (Auto) 1.7 K/mm3 (1.2-5.4); Lymphocytes % (Auto) 14.4 % (13.4-35.0); Monocytes # (Auto) 0.8 K/mm3 (0.0-0.8); Monocytes % (Auto) 6.9 % (0.0-7.3); Platelet Count 570 K/mm3 (140-440); Red Cell Distribution Width 17.6 % (13.2-15.2)
[2019-03-14] MEDS ORDERED: LACTATED RINGERS 1,000 ML IV SCH (13:00)
[2019-03-14] MEDS ORDERED: WATER FOR IRRIG STERILE IR ONE (13:25)
[2019-03-14] MEDS ORDERED: DIPRIVAN 10 MG/ML IV ONE (13:29)
[2019-03-14] MEDS ORDERED: SUBLIMAZE ONE (13:29)
[2019-03-14] MEDS ORDERED: ZOFRAN ONE (13:30)
[2019-03-14] MEDS ORDERED: DECADRON ONE (13:30)
[2019-03-14] MEDS ORDERED: ROBINUL ONE (13:40)
[2019-03-14] MEDS ORDERED: XYLOCAINE MPF 2% ONE (13:40)
[2019-03-14] MEDS ORDERED: NEO SYNEPHRINE ONE (13:40)
--- NOTE | 2019-03-14 14:08 | Short Stay Summary ---
Short Stay Documentation Date of service: 03/14/19 - History H&P: obtained from office - Allergies and Medications Current Medications: Allergies No Known Allergies Allergy (Verified 01/11/19 04:28) Home Medications Medication Instructions Recorded Confirmed Last Taken Type Atenolol 25 mg PO DAILY 01/13/19 03/14/19 03/14/19 12:15 History Cetirizine HCl 10 mg PO DAILY 01/13/19 03/09/19 03/13/19 History Fenofibrate 160 mg PO DAILY 01/13/19 03/09/19 03/13/19 History Plavix 75 mg PO DAILY 01/13/19 03/14/19 4 Days Ago History ~03/10/19 Lisinopril [Zestril TAB] 40 mg PO QDAY #30 tablet 01/18/19 03/14/19 03/14/19 11:00 Rx Aspirin [Adult Aspirin] 81 mg PO DAILY 03/09/19 03/14/19 4 Days Ago History ~03/10/19 Active Medications Cefazolin Sodium (Ancef/Sterile Water 2 Gm/20 Ml) 2 gm IV PREOP NR Stop: 03/14/19 23:59 Fentanyl (Sublimaze) 50 mcg IV Q5MIN PRN PRN Reason: Pain , Severe (7-10) Stop: 03/14/19 23:59 Lactated Ringer's (Lactated Ringers) 1,000 mls @ 100 mls/hr IV DIRECT ROSE Last Admin: 03/14/19 12:55 Dose: 100 mls/hr Documented by: Ondansetron HCl (Zofran) 4 mg IV ONCE PRN PRN Reason: Nausea And Vomiting Stop: 03/14/19 23:50 - Brief post op/procedure progress note Date of procedure: 03/14/19 Pre-op diagnosis: right ureteral stone, jj stent Post-op diagnosis: same Procedure: cysto, left rpg, rt ueteroscopy basket stone, stent removed Anesthesia: PUSHPAA Surgeon: SARAH BLOOD Estimated blood loss: none Condition: stable - Hospital course Hospital course: macrobid, ultram, norco on chart - Disposition Condition at discharge: Stable Disposition: DC-01 TO HOME OR SELFCARE Short Stay Discharge Plan Follow up with: JOSE GREENFIELD MD [Primary Care Provider] - 7 Days
[2019-03-14] MEDS ORDERED: NORMODYNE IV ONE ×2 (14:43→14:47)
--- NOTE | 2019-03-14 14:57 | Operative Report ---
PREOPERATIVE DIAGNOSIS: Right distal ureteral stone, status post stent placement for sepsis. POSTOPERATIVE DIAGNOSIS: Right distal ureteral stone, status post stent placement for sepsis. PROCEDURE: Cystoscopy, left retrograde pyelogram, right ureteroscopy, basket stone extraction and stent removal. SURGEON: Paulo Mauro MD ANESTHESIA: General. ESTIMATED BLOOD LOSS: Minimal. FLUIDS: Crystalloid. COMPLICATIONS: No complications. INDICATIONS: This patient is an 83-year-old female with history of stones, status post lithotripsy years ago, was admitted earlier this year with back pain. CT of abdomen and pelvis revealed right hydronephrosis. She underwent cystoscopy, stent in December and was found to have infection at that time. Stent was left indwelling to clear the infection. She presents now for reevaluation. She was cleared from a cardiac standpoint by [facility]. PRIMARY CARE PHYSICIAN: Dr. Espinoza Martinez. DESCRIPTION OF PROCEDURE: The patient was taken to the operative suite, placed in a supine position. After adequate general anesthesia, she was placed in a dorsal lithotomy position, prepped and draped in a sterile fashion. Pancystourethroscopy was performed with a 22-Gu[place]ian Storz cystoscope, no acute bladder pathology, stent indwelling on the right side. Anchor Tack Puller film suggested a small stone in the left kidney, could not appreciate the ureter on the right side due to the stent. Left retrograde pyelogram was obtained with an 8-Guamanian Jody catheter and 8 mL of contrast. No filling defects or obstruction. Calcification may be in a jessica. On the right side, a 0.035 Glidewire was placed and stent was removed. A second wire was placed followed by flexible ureteroscopy. Stone could be appreciated 1 cm proximal to ureteral orifice. It was engaged and extracted with a 3-Guamanian Barbra basket. Ureteroscopy up to the renal pelvis unremarkable. There was some passive dilation of the ureter and therefore elected to not leave a stent. Her bladder was drained. She was extubated and taken to recovery room. She will go home on Macrobid, Ultram and [place]. JOB# [id number] [facility]
[2019-03-14] MEDS: SUBLIMAZE IV PRN ×2 (15:05→15:15)
--- NOTE | 2019-03-14 15:32 | Fluoroscopy Report ---
FLUOROSCOPY RETROGRADE UROGRAPHY HISTORY: Right ureteral stone. FINDINGS: Fluoroscopy was provided by radiology during retrograde urography by the urologist. 8 fluor oscopic images were saved. 0.6 minutes of fluoroscopy time was utilized. The left retrograde pyelogram is normal. A right ureteral stent is in place on the slasher machine operator image. The stent was removed. Right ureteroscopy was performed. A right ureteral stone was removed by basket extraction. Please correlate with the procedu ral report as needed. IMPRESSION: Right ureteral stone removal. Normal left retrograde pyelogram. Signer Name: Rui Duran Jr, MD Signed: 03/14/2019 3:28 PM Workstation Name: [id number]
[2019-03-14 15:42] VITALS: BP 168/70
--- NOTE | 2019-03-14 19:19 | Post Anesthesia Evaluation ---
- Post Anesthesia Evaluation Patient Participated: Yes Airway Patent: Yes Stable Respiratory Function: Yes Nausea/Vomiting: No Temp > 96.8F: Yes Pain Manageable: Yes Adequeate Hydration: Yes Anesthesia Complications: No
== END 2019-03-14 16:15 | disposition home or self-care (01) ==
LOC: OR 10:29
PROVIDERS: ATTEND Urology
DX: N20.1 Calculus of ureter (principal); I10 Essential (primary) hypertension; J18.9 Pneumonia, unspecified organism; Z79.899 Other long term (current) drug therapy; Z79.82 Long term (current) use of aspirin; Z87.440 Personal history of urinary (tract) infections
CPT/HCPCS: 36415; 52352; 74420; 80048; 83735; 85025; 88302; A4217; J0690; J2370; J2704; J3010; J7120; Q9967; 88300; C1758; C1769; J1100; J2405